=== PATIENT | female | born 1960 | race African-American/Black ===

== ENCOUNTER 2019-06-01 13:09 | Inpatient (IN) | payer OTHER ==
[2019-06-01 15:12] VITALS: BMI 20.6
--- NOTE | 2019-06-01 15:45 | HP ---
COWS - Scale Resting Pulse: 0= [place] 80 or Below Sweatin= Chills/Flushing Restless Observation: 1= Difficult to Sit Still Pupil Size: 1= Pupils >than Normal Bone or Joint Aches: 2= Severe Diffuse Aches Runny Nose/ Eye Tearin= Runny Nose/Eyes GI Upset > 30mins: 2= Nausea/Diarrhea Tremor Observation: 2= Slight Tremor Visible Yawning Observation: 1= 1-2x During Session Anxiety or Irritability: 2=Irritable/Anxious Goose Flesh Skin: 0=Smooth Skin COWS Score: 14 CIWA Score - Admission Criteria OASAS Guidelines: Admission for Medically Managed Detox: Requires at least one of the followin. CIWA greater than 12 2. Seizures within the past 24 hours 3. Delirium tremens within the past 24 hours 4. Hallucinations within the past 24 hours 5. Acute intervention needed for co occurring medical disorder 6. Acute intervention needed for co occurring psychiatric disorder 7. Severe withdrawal that cannot be handled at a lower level of care (continued vomiting, continued diarrhea, abnormal vital signs) requiring intravenous medication and/or fluids 8. Admission ROS [facility] - HPI Chief Complaint: need help to stop using heroin,fentonyl,cocaine Allergies/Adverse Reactions: Allergies Allergy/AdvReac Type Severity Reaction Status Date / Time ampicillin Allergy Intermediate Hives Verified 06/01/19 15:06 History of Present Illness: this 59 years ol female with heroin,fentonyl and cocaine dependence seeking detox,withdrawal symptom, last detox 01/23 [facility] hypertension non compliance, denied seizure,denied syncope weight loss history of schizophrenia non compliance right kne replacement in 09/08/18 left knee surgery in 2003 history of total hysterectomy in 1991 for fibroid uterus longest sobriety 5 years from 2007 to 2012 plan for rehab after detox Exam Limitations: No Limitations - Ebola screening Have you traveled outside of the country in the last 21 days: No Have you had contact with anyone from an Ebola affected area: No - Review of Systems Constitutional: Chills, Loss of Appetite, Night Sweats, Changes in sleep, Weakness, Unexplained wgt Loss EENT: reports: Tearing, Nose Congestion Respiratory: reports: No Symptoms reported Cardiac: reports: No Symptoms Reported GI: reports: Diarrhea, Nausea, Poor Appetite, Abdominal cramping : reports: No Symptoms Reported Musculoskeletal: reports: Back Pain, Joint Pain, Muscle Pain, Other (s/p right knee replacement left knee surgery) Integumentary: reports: Dryness Neuro: reports: Headache, Tremors Endocrine: reports: No Symptoms Reported Hematology: reports: No Symptoms Reported Psychiatric: reports: No Sypmtoms Reported, Judgement Intact, Mood/Affect Appropiate, Orientated x3, other (schizophrenia) Other Systems: Reviewed and Negative Patient History - Patient Medical History Hx Anemia: No Hx Asthma: No Hx Chronic Obstructive Pulmonary Disease (COPD): No Hx Cancer: No Hx Cardiac Disorders: No Hx Congestive Heart Failure: No Hx Hypertension: Yes (nn compliance) Hx Hypercholesterolemia: No Hx Pacemaker: No HX Cerebrovascular Accident: No Hx Seizures: No Hx Dementia: No Hx Diabetes: No Hx Gastrointestinal Disorders: No Hx Liver Disease: No Hx Genitourinary Disorders: No Hx Sexually Transmitted Disorders: No Hx Renal Disease (ESRD): No Hx Thyroid Disease: No Hx Human Immunodeficiency Virus (HIV): Yes (19 negative) Hx Hepatitis C: No Hx Depression: No Hx Suicide Attempt: No Hx Bipolar Disorder: No Hx Schizophrenia: Yes (non compliance) Other Medical History: no suicidal,no homicidal - Patient Surgical History Past Surgical History: Yes Hx Orthopedic Surgery: Yes (right knee replacement in 09/08/18,left knee surgery in 2003) - PPD History Previous Implant?: Yes Documented Results: Negative w/o proof Implanted On Prior R Admission?: No PPD to be Administered?: No - Reproductive History Patient is a Female of Child Bearing Age (11 -55 yrs old): No Patient : No - Smoking Cessation Smoking history: Current every day smoker Have you smoked in the past 12 months: Yes Aproximately how many cigarettes per day: 10 Cigars Per Day: 0 Hx Chewing Tobacco Use: No Initiated information on smoking cessation: Yes 'Breaking Loose' booklet given: 06/01/19 - Substance & Tx. History Hx Alcohol Use: No Hx Substance Use: Yes Substance Use Type: Cocaine, Heroin - Substances abused Heroin Substance route: Inhalation Frequency: Daily Amount used: 1 bundle Age of first use: 27 Date of last use: 05/31/19 Other Other (specify): fentanyl Substance route: Inhalation Frequency: 1-3 times last 30 days Amount used: 1 bundle Age of first use: 59 Date of last use: 05/31/19 Cocaine Substance route: Smoking Frequency: 3-6 times per week Amount used: 20$ Age of first use: 46 Date of last use: 05/31/19 Family Disease History - Family Disease History Family History: Denies Admission Physical Exam [facility] - Vital Signs Vital Signs: Vital Signs - 24 hr 06/01/19 15:05 Temperature 97.9 F Pulse Rate 69 Respiratory 18 Rate Blood Pressure 139/85 - Physical General Appearance: Yes: Moderate Distress, Tremorous, Irritable, Sweating, Anxious HEENTM: Yes: Normal ENT Inspection, BINDU, Pharynx Normal Respiratory: Yes: Lungs Clear, Normal Breath Sounds, No Respiratory Distress Neck: Yes: Within Normal Limits, Supple, Trachea in good position Breast: Yes: Breast Exam Deferred Cardiology: Yes: Within Normal Limits, Regular Rhythm, Regular Rate, S1, S2 Abdominal: Yes: Within Normal Limits, Normal Bowel Sounds, Non Tender, Flat, Soft, Surgical Scar Genitourinary: Yes: Within Normal Limits Back: Yes: Muscle Spasm Musculoskeletal: Yes: Back pain, Joint Stiffness, Muscle Pain Extremities: Yes: Tremors Neurological: Yes: 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 II-XII NML intact, Fully Oriented, Alert, Motor Strength 5/5 Integumentary: Yes: Dry Lymphatic: Yes: Within Normal Limits - Diagnostic (1) Opioid dependence with withdrawal Current Visit: Yes Status: Acute (2) Cocaine dependence Current Visit: Yes Status: Chronic (3) Weight loss Current Visit: Yes Status: Acute (4) Nicotine dependence Current Visit: Yes Status: Chronic (5) Dehydration Current Visit: Yes Status: Acute (6) Schizophrenia Current Visit: Yes Status: Chronic (7) History of hysterectomy Current Visit: Yes Status: Acute (8) History of right knee joint replacement Current Visit: Yes Status: Acute (9) H/O left knee surgery Current Visit: Yes Status: Acute (10) Arthritis Current Visit: Yes Status: Acute Cleared for Admission [facility] - Detox or Rehab [facility] Level of Care: Medically Managed Detox Regimen/Protocol: Methadone Inpatient Rehab Admission - Rehab Decision to Admit Inpatient rehab admission?: No
[2019-06-01] MEDS ORDERED: MENTHOL/PHENOL 1 EACH UD MM PRN (15:53)
[2019-06-01] MEDS ORDERED: IBUPROFEN 400 MG TABLET (FP) PO PRN (15:53)
[2019-06-01] MEDS ORDERED: MAGNESIUM HYDROX 2400MG/30ML ORAL SUSPENSION 30 ML CUP PO PRN (15:53)
[2019-06-01] MEDS ORDERED: NICOTINE POLACRILEX 2 MG GUM BUC PRN (15:53)
[2019-06-01] MEDS ORDERED: BISMUTH SUBSALICYLATE 524 MG/30 ML UD PO PRN (15:53)
[2019-06-01] MEDS ORDERED: ACETAMINOPHEN 325 MG TABLET (FP) PO PRN ×2 (15:53)
[2019-06-01] MEDS ORDERED: MAGNESIUM CITRATE 300 ML BOTTLE PO PRN (15:53)
[2019-06-01] MEDS ORDERED: METHADONE HCL 10 MG TABLET (FOR DETOX USE ONLY) PO ONE (16:45)
[2019-06-01] MEDS: NICOTINE 21 MG/24 HOURS TOPICAL PATCH TD SCH (17:53)
[2019-06-01] MEDS: hydrOXYzine PAMOATE 25 MG CAPSULE (FP) PO PRN (20:37)
[2019-06-01] MEDS: THIAMINE HCL 100 MG TABLET (FP) PO SCH (22:41)
[2019-06-01] MEDS: MELATONIN 5 MG TABLETS PO PRN (22:41)
[2019-06-02] MEDS ORDERED: METHADONE HCL 10 MG TABLET (FOR DETOX USE ONLY) ONE (09:29)
[2019-06-02] MEDS ORDERED: METHADONE HCL 5 MG TABLET (FOR DETOX USE ONLY) ONE (09:30)
[2019-06-02] MEDS: PRENATAL VITAMINS W/ FOLIC ACID TABLET (FP) PO SCH (09:54)
[2019-06-02] MEDS: NICOTINE 21 MG/24 HOURS TOPICAL PATCH TD SCH (09:56)
[2019-06-02] MEDS ORDERED: METHADONE (DETOX) 20 MG, METHADONE (DETOX) 5 MG PO ONE (10:00)
[2019-06-02] MEDS: hydrOXYzine PAMOATE 25 MG CAPSULE (FP) PO PRN ×3 (11:14→22:41)
[2019-06-02] MEDS: cloNIDine HCL 0.1 MG TABLET PO PRN ×3 (11:48→20:56)
[2019-06-02 11:55] LABS: HEMATOCRIT 38.8 % (32.4-45.2); HEMOGLOBIN 13.1 GM/dL (10.7-15.3); MCH 31.2 pg (25.7-33.7); MCHC 33.6 g/dl (32.0-36.0); MEAN CELL VOLUME 92.8 fl (80-96); MEAN PLT VOLUME 8.8 fl (7.5-11.1); PLATELET COUNT 304 K/MM3 (134-434); RBC 4.18 M/mm3 (3.60-5.2)
[2019-06-02 12:04] LABS: ALBUMIN 3.8 g/dl (3.4-5.0); BILIRUBIN,TOTAL 0.5 mg/dL (0.2-1); BLOOD UREA NITROGEN 8.3 mg/dL (7-18); CALCIUM 10.3 mg/dL (8.5-10.1); CREATININE 0.7 mg/dL (0.55-1.3)
--- NOTE | 2019-06-02 12:04 | CONSULT ---
[facility] Psychiatric Consult - Data Date of interview: 06/02/19 Admission source: [facility] Identifying data: First admission to [facility] for this 59 y/o AA female self- referred for detoxification (heroin, cocaine, fentanyl). Interviewed at [address] [place] [address]. Patient is single, a mother of one, domiciled (resides with relatives in [place]), unemployed, disabled and supported on [facility] benefits. Substance Abuse History: Discussed in this interview. Substance abuse profile is confirmed by patient, as detailed in current [facility] report : Smoking history: Current every day smoker. Have you smoked in the past 12 months: Yes. Aproximately how many cigarettes per day: 10. Cigars Per Day: 0. Hx Chewing Tobacco Use: No. Initiated information on smoking cessation: Yes. 'Breaking Loose' booklet given: 06/01/19. - Substance & Tx. History. Hx Alcohol Use: No. Hx Substance Use: Yes. Substance Use Type: Cocaine, Heroin. - Substances abused. Heroin. Substance route: Inhalation. Frequency: Daily. Amount used: 1 bundle. Age of first use: 27. Date of last use: 05/31/19. Other. Other (specify): fentanyl. Substance route: Inhalation. Frequency: 1-3 times last 30 days. Amount used: 1 bundle. Age of first use: 59. Date of last use: 05/31/19. Cocaine. Substance route: Smoking. Frequency: 3-6 times per week. Amount used: 20$. Age of first use: 46. Date of last use: 05/31/19 Medical History: Medical history is remarkable for hypertension, GERD, hyperthyroidism, antecedent of orthosurgery (total right knee replacement + partial left knee replacement) and a history of hysterectomy (fibroids). Psychiatric History: Patient presents as a hostile + irritable historian. She endorses an extensive history of mental illness (onset at age 24) that warranted multiple psychiatric hospitalizations ([facility] and [facility]). Reportably diagnosed with Schizophrenia. Ms Szymanski indicates that she no longer has a psychiatrist for outpatient care. She cannot remember the names of her medications. Review of external pharmacy activity shows refills for suboxone + paliperidone (oral) at [facility] and [facility] (03/09/19 + 05/02/19 respectively). Patient reports non-adherence with psychotropic medications for more than two weeks. " I don't take medications when I use drugs." No contact with psychiatric OPD care providers. Patient denies history of suicide attempts. Physical/Sexual Abuse/Trauma History: Not discussed. Patient declines to revisit this domain. Additional Comment: No toxicology available for review. Mental Status Exam - Mental Status Exam Alert and Oriented to: Time, Place, Person Cognitive Function: Good Patient Appearance: Well Groomed (thin frame; tattoos on upper extremities) Mood: Angry, Hostile, Nervous, Irritable Affect: Mood Congruent Patient Behavior: Inappropriate, Fatigued, Guarded, Impulsive Speech Pattern: Clear Voice Loudness: Normal Thought Process: Goal Oriented Hallucinations: Denies Suicidal Ideation: Denies Homicidal Ideation: Denies Insight/Judgement: Poor Sleep: Poorly, Difficulty falling asleep Appetite: Poor, Weight loss Gait/Station: Normal Psychiatric Findings - Problem List (Anita 1, 2,3) (1) Schizophrenia Current Visit: Yes Status: Chronic (2) Opioid dependence with withdrawal Current Visit: Yes Status: Acute (3) Cocaine dependence Current Visit: Yes Status: Chronic (4) Nicotine dependence Current Visit: Yes Status: Chronic (5) Substance induced mood disorder Current Visit: Yes Status: Acute (6) Insomnia Current Visit: Yes Status: Chronic (7) Non-compliance Current Visit: Yes Status: Chronic - Initial Treatment Plan Initial Treatment Plan: Psychoeducation. Sleep hygiene. Detoxification. Clarification of medications. Support. NA meetings. Observation.
--- NOTE | 2019-06-02 12:16 | PN ---
BHS COWS - Scale Resting Pulse: 0= [place] 80 or Below Sweatin= Chills/Flushing Restless Observation: 0= Sits Still Pupil Size: 1= Pupils >than Normal Bone or Joint Aches: 1= Mild Discomfort Runny Nose/ Eye Tearin= Nasal Congestion GI Upset > 30mins: 1= Stomach Cramp Tremor Observation of Outstretched Hands: 2= Slight Tremor Visible Yawning Observation: 1= 1-2x During Session Anxiety or Irritability: 2=Irritable/Anxious Goose Flesh Skin: 0=Smooth Skin COWS Score: 10 S Progress Note (SOAP) Subjective: 59 years old female admitted on 06/01/19 for opiate withdrawal sx management doing well with methadone detox regimen resting on bed feeling tired prefers to stay in bed today suboxone 8-2mg po tid fill every two weeks last filled 05/16/19 unable to evaluate urine tox upon admission reorder urine tox Objective: 06/02/19 12:17 Vital Signs Temperature 98.0 F 06/02/19 09:22 Pulse Rate 70 06/02/19 09:22 Respiratory Rate 18 06/02/19 09:22 Blood Pressure 114/70 06/02/19 09:22 O2 Sat by Pulse Oximetry (%) Laboratory Last Values WBC 7.0 K/mm3 (4.0-10.0) 06/02/19 07:30 RBC 4.18 M/mm3 (3.60-5.2) 06/02/19 07:30 Hgb 13.1 GM/dL (10.7-15.3) 06/02/19 07:30 Hct 38.8 % (32.4-45.2) 06/02/19 07:30 MCV 92.8 fl (80-96) 06/02/19 07:30 MCH 31.2 pg (25.7-33.7) 06/02/19 07:30 MCHC 33.6 g/dl (32.0-36.0) 06/02/19 07:30 RDW 13.0 % (11.6-15.6) 06/02/19 07:30 Plt Count 304 K/MM3 (134-434) 06/02/19 07:30 MPV 8.8 fl (7.5-11.1) 06/02/19 07:30 Sodium 140 mmol/L (136-145) 06/02/19 07:30 Potassium 5.0 mmol/L (3.5-5.1) 06/02/19 07:30 Chloride 107 mmol/L (98-107) 06/02/19 07:30 Carbon Dioxide 28 mmol/L (21-32) 06/02/19 07:30 Anion Gap 5 MMOL/L (8-16) L 06/02/19 07:30 BUN 8.3 mg/dL (7-18) 06/02/19 07:30 Creatinine 0.7 mg/dL (0.55-1.3) 06/02/19 07:30 Est GFR (CKD-EPI)AfAm 110.69 06/02/19 07:30 Est GFR (CKD-EPI)NonAf 95.50 06/02/19 07:30 Random Glucose 80 mg/dL (74-106) 06/02/19 07:30 Calcium 10.3 mg/dL (8.5-10.1) H 06/02/19 07:30 Total Bilirubin 0.5 mg/dL (0.2-1) 06/02/19 07:30 AST 13 U/L (15-37) L 06/02/19 07:30 ALT 18 U/L (13-61) 06/02/19 07:30 Alkaline Phosphatase 62 U/L (45-117) 06/02/19 07:30 Total Protein 7.0 g/dl (6.4-8.2) 06/02/19 07:30 Albumin 3.8 g/dl (3.4-5.0) 06/02/19 07:30 lab noted Assessment: 06/02/19 12:17 opiate withdrawal sx alert low voice limited conversation with staff Plan: continue methadone detox
[2019-06-02 12:42] LABS: SICKLE CELL SCREEN NEGATIVE (NEGATIVE)
[2019-06-02] MEDS: METHOCARBAMOL 500 MG TABLET PO PRN (22:41)
[2019-06-02] MEDS: THIAMINE HCL 100 MG TABLET (FP) PO SCH (22:41)
[2019-06-02 23:15] LABS: EPI CELLS 3.9 /HPF (0-5/HPF); HYALINE CASTS 14 /lpf (0-8); PH,URINE 6.5 (5.0-8.0); URINE APPEARANCE CLOUDY; URINE BACTERIA 33.7 /hpf (NEGATIVE); URINE BILIRUBIN NEGATIVE (NEGATIVE); URINE COLOR YELLOW; URINE GLUCOSE (UA) NEGATIVE (NEGATIVE); URINE KETONE NEGATIVE (NEGATIVE); URINE LEUK ESTERASE 2+ (NEGATIVE); URINE NITRITE NEGATIVE (NEGATIVE); URINE PROTEIN NEGATIVE (NEGATIVE); URINE RBC 3 /hpf (0-4); URINE UROBILINOGEN 0.2 mg/dL (0.2-1.0); URINE WBC 28 /hpf (0-5)
[2019-06-02 23:34] LABS: OPIATES, URI NEGATIVE ng/ml (CUTOFF=300); PHENCYCLIDINE,URINE NEGATIVE ng/ml (CUTOFF=25); URINE AMPHETAMINES NEGATIVE ng/ml (CUTOFF=500); URINE BARBITURATES NEGATIVE ng/ml (CUTOFF=200); URINE BENZODIAZEPINES NEGATIVE ng/ml (CUTOFF=200)
[2019-06-02 23:48] LABS: COCAINE, UR POSITIVE ng/ml (CUTOFF=300)
[2019-06-02 23:49] LABS: METHADONE, UR POSITIVE ng/ml (CUTOFF=300)
[2019-06-03] MEDS ORDERED: METHADONE HCL 10 MG TABLET (FOR DETOX USE ONLY) PO ONE (10:00)
[2019-06-03] MEDS: NICOTINE 21 MG/24 HOURS TOPICAL PATCH TD SCH (10:15)
[2019-06-03] MEDS: PRENATAL VITAMINS W/ FOLIC ACID TABLET (FP) PO SCH (10:16)
--- NOTE | 2019-06-03 10:57 | EKG ---
Test Reason : Blood Pressure : / mmHG Vent. Rate : 073 BPM Atrial Rate : 073 BPM P-R Int : 136 ms QRS Dur : 086 ms QT Int : 400 ms P-R-T Axes : 068 045 047 degrees QTc Int : 440 ms NORMAL SINUS RHYTHM WITH SINUS ARRHYTHMIA POSSIBLE LEFT ATRIAL ENLARGEMENT BORDERLINE ECG NO PREVIOUS ECGS AVAILABLE Confirmed by JULIA BROOKS MD ([id number]) on 06/03/2019 10:56:34 AM Referred By: PATRICIA Rose Confirmed By:JULIA BROOKS MD
--- NOTE | 2019-06-03 11:36 | PN ---
BHS COWS - Scale Resting Pulse: 0= [place] 80 or Below Sweatin= Chills/Flushing Restless Observation: 0= Sits Still Pupil Size: 1= Pupils >than Normal Bone or Joint Aches: 1= Mild Discomfort Runny Nose/ Eye Tearin= Nasal Congestion GI Upset > 30mins: 1= Stomach Cramp Tremor Observation of Outstretched Hands: 1= Tremor [place], Not Seen Yawning Observation: 1= 1-2x During Session Anxiety or Irritability: 1=Feels Anxious/Irritable Goose Flesh Skin: 0=Smooth Skin COWS Score: 8 S Progress Note (SOAP) Subjective: doing well with methadone detox regimen ambulating on hallway social with peers in day room taking suboxone 8-2 mg po tid last filled 2 weeks on 05/16/19 Objective: 06/03/19 11:49 Vital Signs Temperature 97.7 F 06/03/19 09:15 Pulse Rate 72 06/03/19 09:15 Respiratory Rate 18 06/03/19 09:15 Blood Pressure 109/69 06/03/19 09:15 O2 Sat by Pulse Oximetry (%) Laboratory Last Values WBC 7.0 K/mm3 (4.0-10.0) 06/02/19 07:30 RBC 4.18 M/mm3 (3.60-5.2) 06/02/19 07:30 Hgb 13.1 GM/dL (10.7-15.3) 06/02/19 07:30 Hct 38.8 % (32.4-45.2) 06/02/19 07:30 MCV 92.8 fl (80-96) 06/02/19 07:30 MCH 31.2 pg (25.7-33.7) 06/02/19 07:30 MCHC 33.6 g/dl (32.0-36.0) 06/02/19 07:30 RDW 13.0 % (11.6-15.6) 06/02/19 07:30 Plt Count 304 K/MM3 (134-434) 06/02/19 07:30 MPV 8.8 fl (7.5-11.1) 06/02/19 07:30 Sickle Cell Screen Negative (NEGATIVE) 06/02/19 07:30 Sodium 140 mmol/L (136-145) 06/02/19 07:30 Potassium 5.0 mmol/L (3.5-5.1) 06/02/19 07:30 Chloride 107 mmol/L (98-107) 06/02/19 07:30 Carbon Dioxide 28 mmol/L (21-32) 06/02/19 07:30 Anion Gap 5 MMOL/L (8-16) L 06/02/19 07:30 BUN 8.3 mg/dL (7-18) 06/02/19 07:30 Creatinine 0.7 mg/dL (0.55-1.3) 06/02/19 07:30 Est GFR (CKD-EPI)AfAm 110.69 06/02/19 07:30 Est GFR (CKD-EPI)NonAf 95.50 06/02/19 07:30 Random Glucose 80 mg/dL (74-106) 06/02/19 07:30 Calcium 10.3 mg/dL (8.5-10.1) H 06/02/19 07:30 Total Bilirubin 0.5 mg/dL (0.2-1) 06/02/19 07:30 AST 13 U/L (15-37) L 06/02/19 07:30 ALT 18 U/L (13-61) 06/02/19 07:30 Alkaline Phosphatase 62 U/L (45-117) 06/02/19 07:30 Total Protein 7.0 g/dl (6.4-8.2) 06/02/19 07:30 Albumin 3.8 g/dl (3.4-5.0) 06/02/19 07:30 Urine Color Yellow 06/02/19 17:15 Urine Appearance Cloudy 06/02/19 17:15 Urine pH 6.5 (5.0-8.0) 06/02/19 17:15 Ur Specific [place] 1.016 (1.010-1.035) 06/02/19 17:15 Urine Protein Negative (NEGATIVE) 06/02/19 17:15 Urine Glucose (UA) Negative (NEGATIVE) 06/02/19 17:15 Urine Ketones Negative (NEGATIVE) 06/02/19 17:15 Urine Blood Negative (NEGATIVE) 06/02/19 17:15 Urine Nitrite Negative (NEGATIVE) 06/02/19 17:15 Urine Bilirubin Negative (NEGATIVE) 06/02/19 17:15 Urine Urobilinogen 0.2 mg/dL (0.2-1.0) 06/02/19 17:15 Ur Leukocyte Esterase 2+ (NEGATIVE) H 06/02/19 17:15 Urine WBC (Auto) 28 /hpf (0-5) 06/02/19 17:15 Urine RBC (Auto) 3 /hpf (0-4) 06/02/19 17:15 Urine Casts (Auto) 14 /lpf (0-8) 06/02/19 17:15 U Epithel Cells (Auto) 3.9 /HPF (0-5/HPF) 06/02/19 17:15 Urine Crystals (Auto) 10-15 /hpf 06/02/19 17:15 Urine Bacteria (Auto) 33.7 /hpf (NEGATIVE) 06/02/19 17:15 Opiates Screen Negative ng/ml (PDERZD=612) 06/02/19 17:15 Methadone Screen Positive ng/ml (UKNIFX=797) A* 06/02/19 17:15 Barbiturate Screen Negative ng/ml (QMVKAJ=421) 06/02/19 17:15 Phencyclidine Screen Negative ng/ml (CUTOFF=25) 06/02/19 17:15 Ur Amphetamines Screen Negative ng/ml (KLDNWR=852) 06/02/19 17:15 MDMA (Ecstasy) Screen Negative ng/ml (TQSYFE=310) 06/02/19 17:15 Benzodiazepines Screen Negative ng/ml (NVLLYD=998) 06/02/19 17:15 Cocaine Screen Positive ng/ml (XQCIKQ=847) A* 06/02/19 17:15 U Marijuana (THC) Screen Negative ng/ml (CUTOFF=50) 06/02/19 17:15 RPR Titer Nonreactive (NONREACTIVE) 06/02/19 07:30 lab noted negative suboxone positive methadone uti bactrim ds bid Assessment: 06/03/19 11:50 opite withdrawal sx alert oriented x 3 speech clearly discuss medication assisted treatment program patient agrees returning to suboxone program Plan: continue methadone detox regimen
[2019-06-03] MEDS: cloNIDine HCL 0.1 MG TABLET PO PRN ×2 (12:05→16:11)
[2019-06-03] MEDS: hydrOXYzine PAMOATE 25 MG CAPSULE (FP) PO PRN ×2 (12:06→17:38)
[2019-06-03] MEDS: METHOCARBAMOL 500 MG TABLET PO PRN ×2 (12:28→17:38)
[2019-06-03] MEDS: SULFAMETHOXAZOLE/TRIMETHOPRIM 800MG/160MG D.S. TABLET PO SCH ×2 (12:39→20:59)
--- NOTE | 2019-06-03 15:00 | PN ---
PEG Progress Note Note: Psychiatry Attending's note : Patient approached hand sign writer with complaint of insomnia. She requests seroquel. Reports past dose of 200 mg/hs. Side effects/benefits revisited with the patient. Seroquel 100 mg po hs. Ordered. Ms Szymanski agrees.
--- NOTE | 2019-06-03 20:52 | PN ---
BHS Progress Note Note: Psychiatry Attending's note : Noted hypotension. Seroquel is discontinued.
[2019-06-03] MEDS: THIAMINE HCL 100 MG TABLET (FP) PO SCH (20:59)
[2019-06-03] MEDS: MELATONIN 5 MG TABLETS PO PRN (21:01)
[2019-06-03] MEDS ORDERED: QUEtiapine FUMARATE 100 MG TABLET (FP) PO SCH (22:00)
[2019-06-04] MEDS: MAG HYDROX/AL HYDROX/SIMETH 30 ML UNIT-DOSE CUP PO PRN ×2 (01:43→11:41)
[2019-06-04] MEDS: MELATONIN 5 MG TABLETS PO PRN (01:43)
[2019-06-04] MEDS ORDERED: METHADONE HCL 10 MG TABLET (FOR DETOX USE ONLY) ONE (09:16)
[2019-06-04] MEDS ORDERED: METHADONE HCL 5 MG TABLET (FOR DETOX USE ONLY) ONE (09:16)
[2019-06-04] MEDS ORDERED: METHADONE (DETOX) 10 MG, METHADONE (DETOX) 5 MG PO ONE (10:00)
[2019-06-04] MEDS: SULFAMETHOXAZOLE/TRIMETHOPRIM 800MG/160MG D.S. TABLET PO SCH ×2 (10:08→23:18)
[2019-06-04] MEDS: PRENATAL VITAMINS W/ FOLIC ACID TABLET (FP) PO SCH (10:08)
[2019-06-04] MEDS: NICOTINE 21 MG/24 HOURS TOPICAL PATCH TD SCH (10:09)
[2019-06-04] MEDS: METHOCARBAMOL 500 MG TABLET PO PRN ×2 (10:10→16:16)
[2019-06-04] MEDS ORDERED: ONDANSETRON *ODT* 4 MG TABLET SL ONE ×2 (10:52→18:15)
[2019-06-04] MEDS ORDERED: TRIMETHOBENZAMIDE HCL 200MG/2ML INJ IM ONE (14:06)
--- NOTE | 2019-06-04 14:06 | PN ---
BHS COWS - Scale Resting Pulse: 0= [place] 80 or Below Sweatin= Chills/Flushing Restless Observation: 1= Difficult to Sit Still Pupil Size: 1= Pupils >than Normal Bone or Joint Aches: 1= Mild Discomfort Runny Nose/ Eye Tearin= Nasal Congestion GI Upset > 30mins: 1= Stomach Cramp Tremor Observation of Outstretched Hands: 1= Tremor [place], Not Seen Yawning Observation: 1= 1-2x During Session Anxiety or Irritability: 2=Irritable/Anxious Goose Flesh Skin: 0=Smooth Skin COWS Score: 10 BHS Progress Note (SOAP) Subjective: alert,irritable,anxious,interrupted sleep,pain in epigastrium ,nausea Objective: 06/04/19 14:04 Vital Signs Temperature 96.7 F L 06/04/19 13:17 Pulse Rate 70 06/04/19 13:17 Respiratory Rate 18 06/04/19 13:17 Blood Pressure 145/89 06/04/19 13:17 O2 Sat by Pulse Oximetry (%) Assessment: 06/04/19 14:04 withdrawal symptom Plan: continue methadone regimen,zofran 4 mg sl prn q 6 hrs,tigan 200 mgs im now, close monitoring
--- NOTE | 2019-06-04 17:24 | PN ---
S Progress Note (SOAP) Subjective: Consulted for abdominal pain. Patient is a 59 yo f with a PMHx of HTN GERD, hyperthyroidism, heroin and cocaine dependence complaining of 10/10, constant, burning epigastric abdominal pain that started last night. She said it radiates around to her back. no alleviating or aggravating factors. She said she gets this pain all the time, on and off. When asked, she says she has a history of ulcer and 1 episode of pancreatitis last year. She also says she has GERD. She's had a cholecystectomy in the past. She complains of nausea and says she's been spitting up everything she's been swallowing. She also reports having chills. Patient denies nsaid use,chest pain, sob, cough, diarrhea, dizziness, cough, runny nose, bloody stools. Objective: 06/04/19 17:29 Patient In No acute distress. a/o x 3 +BS, Nontender to palpation, non distended. no guarding, or rebound RRR no edema Plan: #Epigastric pain -CBC -CMP -EKG -Protonix for possible GERD/gastritis -Zofran 1 x. QTc ok -Lipase. Patient reported history of pancreatitis. -monitor vital signs -D/C Ibuprofen order (although did not receive here) -if pain persists, will likely need to be transferred to [facility] for further evaluation. Thank you for your consult.
[2019-06-04] MEDS ORDERED: PROCHLORPERAZINE MALEATE 5 MG TABLET PO ONE (17:36)
--- NOTE | 2019-06-04 17:45 | PN ---
Teaching Attending Note Name of Resident: Vida Maria ATTENDING PHYSICIAN STATEMENT I saw and evaluated the patient. I reviewed the resident's note and discussed the case with the resident. I agree with the resident's findings and plan as documented. SUBJECTIVE: 59 yo here for OUD treatment with heroin detox. Now with c/o mid- epigastric pain. h/o similar pain in the past- with no relief from medications. Spontaneous relief. Pt with h/o GERD, pancreatitis in the past OBJECTIVE: no pain to palpation, no rebound Vital Signs - 24 hr 06/03/19 06/04/19 06/04/19 21:10 00:30 03:30 Temperature 98.2 F Pulse Rate 72 Respiratory 18 18 18 Rate Blood Pressure 94/64 06/04/19 06/04/19 06/04/19 06:13 09:31 13:17 Temperature 98.9 F 97.8 F 96.7 F L Pulse Rate 61 79 70 Respiratory 18 16 18 Rate Blood Pressure 107/67 105/69 145/89 06/04/19 17:26 Temperature 98.2 F Pulse Rate 69 Respiratory 16 Rate Blood Pressure 138/83 ASSESSMENT AND PLAN: to check labs- CMP EKG negative prn protonix, [place], pepto-bismol follow
[2019-06-04 18:11] VITALS: BP 152/80; PULSE 60; TEMP 98.5
[2019-06-04] MEDS ORDERED: ONDANSETRON 4 MG TABLET PO ONE (18:15)
[2019-06-04] MEDS ORDERED: PANTOPRAZOLE 40 MG TABLET (FP) PO ONE (18:15)
[2019-06-04] MEDS: THIAMINE HCL 100 MG TABLET (FP) PO SCH (23:18)
--- NOTE | 2019-06-05 04:10 | HP ---
CHIEF COMPLAINT: Epigastric pain associated with NBNB nausea and vomiting for the past 2 days. PCP: None HISTORY OF PRESENT ILLNESS: The patient is a 59 year old female with past medical history significant for HTN, GERD, schizophrenia, and opioid abuse. She was admitted to [facility] on Saturday (06/03) for heroin detoxification and remained there until she presented to the ER with complaints of epigastric pain associated with NBNB nausea and vomiting for the past 2 days. The pain began 2 days ago, gradual in onset and worsened earlier today. She describes the pain as constant, 10/10 in intensity, non-radiating, aggravated by eating or drinking, and no alleviating factors other than the Famotidine she received in the ER. She has had 3 episodes of vomiting in the past 2 days, with 2 episodes today, one of which was in the ER. She describes the vomitus as clear at first, and green most recently, containing visible food particles, but no blood or bile. While at [facility], she was noticed to have 2+ Leukocyte Esterase on her UA, and was started on Bactrim PO. She does not complain of any dysuria, urinary frequency, hematuria, or pyuria. She is on day 3 of her Bactrim course. She complains of fevers, chills, dizziness, SOB, and palpitations associated with the pain and vomiting. Her last bowel movement (BM) was 2 days ago, and she states that it was hard, non bloody, and associated with pain. She normally has soft, daily bowel movements. There are no associated complaints of throat pain, rhinorrhea,fainting, chest pain,cough, dysuria, or hematuria. ER course was notable for: (1) Famotidine/ Reglan/ Famotidine (2) N/S (3) Mg 2.9 (elevated) Recent Travel: None PAST MEDICAL HISTORY: HTN GERD Schizophrenia Opioid abuse PAST SURGICAL HISTORY: Hysterectomy 1991 Left knee replacement 2003 Cholecystectomy 2013 Right knee replacement 2018 Social History: Smokin/2 pack a day for the past 40 years Alcohol: none Drugs: occasional cocaine use (last use a few days ago, 1-2 vials used) Family History: Mother: HTN, DM, Breast CA at the age of 80 Brother: DM Allergies ampicillin Allergy (Intermediate, Verified 06/01/19 15:06) Hives HOME MEDICATIONS: Home Medications Medication Instructions Recorded Acetaminophen [Tylenol] 650 mg PO Q6H PRN 06/05/19 Bismuth Subsalicylate 524 mg PO Q1H PRN 06/05/19 [Pepto-Bismol -] Mag Hydrox/Al Hydrox/Simeth 30 ml PO Q6H PRN 06/05/19 [Mylanta *Suspension*] Magnesium Citrate [Citroma -] 300 ml PO Q48H PRN 06/05/19 Magnesium Hydrox 2400MG/30Ml [Milk 30 ml PO DAILY PRN 06/05/19 of Magnesia -] Melatonin 5 mg PO HS PRN 06/05/19 Menthol/Phenol [Cepastat Lozenge -] 1 each MM Q4H PRN 06/05/19 Methadone [Dolophine -] 5 mg PO ONCE 06/05/19 Methadone [Dolophine -] 10 mg PO ONCE 06/05/19 Methocarbamol [Robaxin -] 500 mg PO Q6H PRN 06/05/19 Nicotine Patch [Nicoderm Patch -] 1 patch TD DAILY 06/05/19 Nicotine Polacrilex [Nicorette] 2 mg BC Q2H PRN 06/05/19 Pnv No.121/Iron/Folic Acid 1 each PO DAILY 06/05/19 [ Multivitamin Tablet] Sulfamethoxazole/Trimethoprim 1 tab PO BID 06/05/19 [Bactrim Ds -] Thiamine Mononitrate [Vitamin B-1] 100 mg PO HS 06/05/19 hydrOXYzine PAMOATE [Vistaril -] 25 mg PO Q6H PRN 06/05/19 REVIEW OF SYSTEMS CONSTITUTIONAL: fever, chills Absent: diaphoresis, generalized weakness, malaise, loss of appetite, weight change HEENT: Absent: rhinorrhea, nasal congestion, throat pain, throat swelling, difficulty swallowing, mouth swelling, ear pain, eye pain, visual changes CARDIOVASCULAR: palpitations, Absent: chest pain, syncope, irregular heart rate, lightheadedness, peripheral edema RESPIRATORY: Absent: cough, shortness of breath, dyspnea with exertion, orthopnea, wheezing, stridor, hemoptysis GASTROINTESTINAL: abdominal pain, nausea, vomiting Absent: abdominal distension, diarrhea, constipation, melena, hematochezia GENITOURINARY: Absent: dysuria, frequency, urgency, hesitancy, hematuria, flank pain, genital pain MUSCULOSKELETAL: Absent: myalgia, arthralgia, joint swelling, back pain, neck pain SKIN: Absent: rash, itching, pallor HEMATOLOGIC/IMMUNOLOGIC: Absent: easy bleeding, easy bruising, lymphadenopathy, frequent infections ENDOCRINE: Absent: unexplained weight gain, unexplained weight loss, heat intolerance, cold intolerance NEUROLOGIC: Absent: headache, focal weakness or paresthesias, dizziness, unsteady gait, seizure, mental status changes, bladder or bowel incontinence PSYCHIATRIC: Absent: anxiety, depression, suicidal or homicidal ideation, hallucinations. PHYSICAL EXAMINATION Vital Signs - 24 hr 06/04/19 06/04/19 06/04/19 06:13 09:31 13:17 Temperature 98.9 F 97.8 F 96.7 F L Pulse Rate 61 79 70 Respiratory 18 16 18 Rate Blood Pressure 107/67 105/69 145/89 06/04/19 06/04/19 06/05/19 17:26 18:10 00:21 Temperature 98.2 F 98.5 F Pulse Rate 69 60 Respiratory 16 16 18 Rate Blood Pressure 138/83 152/80 COW Score: 3 (nausea, vomiting) GENERAL: Awake, alert, and fully oriented, in no acute distress. HEAD: Normal with no signs of trauma. EYES: Pupils equal, round and reactive to light, extraocular movements intact, sclera anicteric, conjunctiva clear. No lid lag. EARS, NOSE, THROAT: Ears normal, nares patent, oropharynx clear without exudates. Moist mucous membranes. NECK: Normal range of motion, supple without lymphadenopathy, JVD, or masses. LUNGS: Breath sounds equal, clear to auscultation bilaterally. No wheezes, and no crackles. No accessory muscle use. HEART: Regular rate and rhythm, normal S1 and S2 without murmur, rub or gallop. ABDOMEN: Soft, nontender, not distended, normoactive bowel sounds, no guarding, no rebound, no masses. No hepatomegaly or splenomegaly. MUSCULOSKELETAL: Normal range of motion at all joints. No bony deformities or tenderness. No CVA tenderness. UPPER EXTREMITIES: 2+ pulses, warm, well-perfused. No cyanosis. No clubbing. No peripheral edema. LOWER EXTREMITIES: 2+ pulses, warm, well-perfused. No calf tenderness. No peripheral edema. NEUROLOGICAL: Cranial nerves II-XII intact. Normal speech. Normal gait. PSYCHIATRIC: Cooperative. Good eye contact. Appropriate mood and affect. SKIN: Warm, dry, normal turgor, no rashes or lesions noted, normal capillary refill. ASSESSMENT/PLAN: #Withdrawal symptoms - Continue methdone (2 doses left) - Fluids to hydrate, R/L #Epigastric pain - Protonix 40mg for epigastric pain - US Abdomen to r/o any acute process - Repeat EKG, initial EKG shows sinus bradycardia (49 BPM) #Asymptomatic UTI - Bactrim 5 day course, only 1 dose given on , dose not given on the - WBC wnl, UA shows no sign of infection #Constipation - Started on colace #Hypermagnesia - Started on Colace, was previously on Milk of Magnesia (contains Mg) - Avoid meds containing Mg #Hx of HTN - Monitor BP - Currently only borderline hypertensive at times, should continue to monitor and encourage establishment of regular PCP visits in the future #FEN - R/L - Monitor Mg - Sodium controlled diet #DVT PE - Lovenox 40mg ATTENDING PHYSICIAN STATEMENT I saw and evaluated the patient. I reviewed the resident's note and discussed the case with the resident. I agree with the resident's findings and plan as documented. SUBJECTIVE: OBJECTIVE: ASSESSMENT AND PLAN:
[2019-06-05] MEDS ORDERED: PANTOPRAZOLE 40 MG TABLET (FP) PO ONE (04:53)
[2019-06-05] MEDS ORDERED: METHADONE HCL 10 MG TABLET (FOR DETOX USE ONLY) PO ONE (10:00)
--- NOTE | 2019-06-05 11:54 | EKG ---
Test Reason : Blood Pressure : / mmHG Vent. Rate : 052 BPM Atrial Rate : 052 BPM P-R Int : 134 ms QRS Dur : 084 ms QT Int : 428 ms P-R-T Axes : 072 060 055 degrees QTc Int : 398 ms SINUS BRADYCARDIA OTHERWISE NORMAL ECG WHEN COMPARED WITH ECG OF 01-JUN-2019 16:31, NO SIGNIFICANT CHANGE WAS FOUND Confirmed by CONNIE ARGUETA MD ([id number]) on 06/05/2019 11:53:44 AM Referred By: KATLIN GALICIA Confirmed By:CONNIE ARGUETA MD
[2019-06-06] MEDS ORDERED: METHADONE HCL 5 MG TABLET (FOR DETOX USE ONLY) PO ONE (06:00)
== END 2019-06-04 23:59 | disposition short-term general hospital (02) | DRG 897 ==
LOC: YASAS 13:09 → Y3N 15:55
PROVIDERS: ADMIT Surgery; ATTEND Surgery
PROC: HZ2ZZZZ Detoxification Services for Substance Abuse Treatment (ICD-10-PCS; principal; 2019-06-01)
DX: F11.23 Opioid dependence with withdrawal (principal); F14.20 Cocaine dependence, uncomplicated; F17.210 Nicotine dependence, cigarettes, uncomplicated; F19.24 Other psychoactive substance dependence with psychoactive substance-induced mood disorder; F20.9 Schizophrenia, unspecified; E05.90 Thyrotoxicosis, unspecified without thyrotoxic crisis or storm; E86.0 Dehydration; I10 Essential (primary) hypertension; K21.9 Gastro-esophageal reflux disease without esophagitis; G47.00 Insomnia, unspecified; M12.9 Arthropathy, unspecified; R10.13 Epigastric pain; R11.2 Nausea with vomiting, unspecified; Z96.652 Presence of left artificial knee joint; Z90.710 Acquired absence of both cervix and uterus
CPT/HCPCS: 36415; 80053; 80307; 81003; 85027; 85660; 86480; 86593; 93005; 93010; J0735; Q0162

== ENCOUNTER 2019-06-04 19:09 | Inpatient (IN) | payer OTHER ==
--- NOTE | 2019-06-04 19:24 | PDOC ---
History of Present Illness - General Stated Complaint: ABDOMINAL PAIN Time Seen by Provider: 06/04/19 19:16 History Source: Patient Exam Limitations: No Limitations - History of Present Illness Initial Comments: HPI 59 year old female with PMH HTN (medication noncompliance), schizophrenia ( medication noncompliance), GERD (medication noncompliance), pancreatitis, heroine abuse, fentanyl abuse, cocaine abuse, nicotine dependence BIBA to ED from [facility] for epigastric pain since this AM. Pt reported her pain is constant, burning, non-radiating, no alleviating or aggravating factors. Pt admitted to nausea, vomiting. Pt denied diarrhea, blood in stool, fever, recent travel, chest pain, shortness of breath. Pt reported she has not eaten all day and is unable to hold down water. Abdominal surgical history: cholecystectomy, hysterectomy (2/2 fibroid uterus) ROS General: admitted to sweats, chills. denied fever, generalized weakness. HEENT: denied sore throat, rhinorrhea, ear pain. Cardiovascular: denied chest pain, palpitations, syncope, diaphoresis. Respiratory: denied shortness of breath, cough, sputum production, hemoptysis. Gastrointestinal: admitted to abdominal pain, nausea, vomiting. denied diarrhea , constipation, blood in stool. Genitourinary: denied dysuria, increased urinary frequency, hematuria, urinary incontinence, flank pain. Back: denied back pain. Musculoskeletal: denied joint pain, muscle pain, joint swelling. Neurological: denied headache, dizziness, numbness, tingling, weakness. Integumentary: denied rash, laceration, abrasion. Hematologic/Lymphatic: denied bruising or bleeding. PE Constitutional: Well-nourished, Well-developed, appearing stated age. HEENT: head is normocephalic, atraumatic. EOMI. PERRLA. Neck: supple. Full ROM. Cardiovascular: regular heart rhythm. no murmurs. no pericardial friction rub. Respiratory: clear to auscultation bilaterally. no crackles, rhonchi or wheezing. no stridor. Gastrointestinal: soft, nontender. juarez negative. normal bowel sounds. no rebound, guarding, masses. Extremities: peripheral pulses intact. no lower extremity edema. Neurological: CN 2-12 grossly intact. moves all four extremities. Psych: awake, alert, oriented x3. follows commands. answers questions appropriately. 06/04/19 20:34 Past History - Past Medical History Allergies/Adverse Reactions: Allergies Allergy/AdvReac Type Severity Reaction Status Date / Time ampicillin Allergy Intermediate Hives Verified 06/01/19 15:06 Home Medications: Ambulatory Orders Unobtainable 06/01/19 HTN: Yes (nn compliance) Psychiatric Problems: Yes (Scizophrenia) - Surgical History Orthopedic Surgery: Yes (right knee replacement in 09/08/18,left knee surgery in 2003) - Reproductive History PID: No - Suicide/Smoking/Psychosocial Hx Smoking History: Current every day smoker Have you smoked in the past 12 months: Yes Number of Cigarettes Smoked Daily: 10 Cigars Per Day: 0 'Breaking Loose' booklet given: 06/01/19 Hx Alcohol Use: No Drug/Substance Use Hx: Yes Substance Use Type: Cocaine, Heroin Hx Substance Use Treatment: Yes ED Treatment Course - LABORATORY CBC & Chemistry Diagram: 06/04/19 22:23 06/04/19 23:39 Medical Decision Making - Medical Decision Making 59 year old female with above PMH BIBA to ED from [facility] - heroine, fentanyl, cocaine - for epigastric pain, nausea, vomiting since this AM. Chart review: -06/01/19 Admitted to [facility] for Detox from Heroine/Fentanyl/Cocaine -06/02/19: normal CBC, normal CMP, UA positive for UTI -06/04/19: pt developed epigastric pain, nausea/vomiting; pt was given protonix , pepto-bismol, mylanta without resolution of symptoms; sent to ED Initial Vital Signs Temp Pulse Resp BP Pulse Ox 98.1 F 70 17 145/79 99 06/04/19 19:37 06/04/19 19:37 06/04/19 19:37 06/04/19 19:37 06/04/19 19:37 Afebrile. No tachycardia. No tachypnea. No hypotension. No hypoxia on room air. Labs ordered: CBC, CMP, lipase Imaging ordered: CXR Medications ordered: pepcid, zofran 4 mg IV o nce, normal saline bolus 100 cc once, vicous lidocaine, bentyl 20 mg IM once EKG: rate 49, regular rhythm, normal axis, normal intervals, QTc 419, no acute ST changes. CXR my view: no free air under diaphragm. -Pending official report 06/04/19 21:42 CMP Sodium 135 mmol/L (136-145) L 06/04/19 21:03 Potassium 4.3 mmol/L (3.5-5.1) 06/04/19 21:03 Chloride 97 mmol/L (98-107) L 06/04/19 21:03 Carbon Dioxide 31 mmol/L (21-32) 06/04/19 21:03 Anion Gap 7 MMOL/L (8-16) L 06/04/19 21:03 BUN 9.4 mg/dL (7-18) 06/04/19 21:03 Creatinine 1.0 mg/dL (0.55-1.3) 06/04/19 21:03 Est GFR (CKD-EPI)AfAm 71.92 06/04/19 21:03 Est GFR (CKD-EPI)NonAf 62.05 06/04/19 21:03 Random Glucose 109 mg/dL (74-106) H 06/04/19 21:03 Calcium 11.4 mg/dL (8.5-10.1) H 06/04/19 21:03 Magnesium 2.9 mg/dL (1.8-2.4) H 06/04/19 21:03 Total Bilirubin 0.9 mg/dL (0.2-1) 06/04/19 21:03 AST 13 U/L (15-37) L 06/04/19 21:03 ALT 17 U/L (13-61) 06/04/19 21:03 Alkaline Phosphatase 69 U/L (45-117) 06/04/19 21:03 Total Protein 8.3 g/dl (6.4-8.2) H 06/04/19 21:03 Albumin 4.7 g/dl (3.4-5.0) 06/04/19 21:03 Lipase 47 U/L (73-393) L 06/04/19 21:03 Mild hyponatremia. Mild hypochloremia. Hypercalcemia. No transaminitis. Lipase wnl. Medications ordered: normal saline bolus 1000 cc once 06/04/19 21:50 Pt actively vomiting. Medications ordered: Reglan 10 mg IV once 06/04/19 22:57 CBC WBC 7.6 K/mm3 (4.0-10.0) 06/04/19 22:23 Corrected WBC (auto) Cancelled 06/04/19 21:03 RBC 4.22 M/mm3 (3.60-5.2) 06/04/19 22:23 Hgb 13.0 GM/dL (10.7-15.3) 06/04/19 22:23 Hct 39.5 % (32.4-45.2) 06/04/19 22:23 MCV 93.6 fl (80-96) 06/04/19 22:23 MCH 30.8 pg (25.7-33.7) 06/04/19 22:23 MCHC 32.9 g/dl (32.0-36.0) 06/04/19 22:23 RDW 13.3 % (11.6-15.6) 06/04/19 22:23 Plt Count 272 K/MM3 (134-434) 06/04/19 22:23 MPV 8.2 fl (7.5-11.1) 06/04/19 22:23 Absolute Neuts (auto) 5.7 K/mm3 (1.5-8.0) 06/04/19 22:23 Neutrophils % 75.3 % (42.8-82.8) 06/04/19 22:23 Lymphocytes % 16.8 % (8-40) 06/04/19 22:23 Monocytes % 7.0 % (3.8-10.2) 06/04/19 22:23 Eosinophils % 0.3 % (0-4.5) 06/04/19 22:23 Basophils % 0.6 % (0-2.0) 06/04/19 22:23 Nucleated RBC % 0 % (0-0) 06/04/19 22:23 Platelet Estimate Cancelled 06/04/19 21:03 Platelet Comment Cancelled 06/04/19 21:03 No leukocytosis. No anemia. No left shift. Pt reassessed, sleeping comfortably. 06/04/19 23:36 Pt reassessed, sleeping comfortably. Second IVF bag finished. Labs ordered: repeat CMP 06/05/19 00:28 CMP Sodium 138 mmol/L (136-145) 06/04/19 23:39 Potassium 4.7 mmol/L (3.5-5.1) 06/04/19 23:39 Chloride 105 mmol/L (98-107) 06/04/19 23:39 Carbon Dioxide 27 mmol/L (21-32) 06/04/19 23:39 Anion Gap 7 MMOL/L (8-16) L 06/04/19 23:39 BUN 9.2 mg/dL (7-18) 06/04/19 23:39 Creatinine 0.8 mg/dL (0.55-1.3) 06/04/19 23:39 Est GFR (CKD-EPI)AfAm 94.19 06/04/19 23:39 Est GFR (CKD-EPI)NonAf 81.27 06/04/19 23:39 Random Glucose 93 mg/dL (74-106) 06/04/19 23:39 Calcium 9.3 mg/dL (8.5-10.1) 06/04/19 23:39 Magnesium 2.9 mg/dL (1.8-2.4) H 06/04/19 21:03 Total Bilirubin 0.7 mg/dL (0.2-1) 06/04/19 23:39 AST 13 U/L (15-37) L 06/04/19 23:39 ALT 14 U/L (13-61) 06/04/19 23:39 Alkaline Phosphatase 54 U/L (45-117) 06/04/19 23:39 Total Protein 6.2 g/dl (6.4-8.2) L 06/04/19 23:39 Albumin 3.5 g/dl (3.4-5.0) 06/04/19 23:39 Electrolytes improved. Pt reassessed, reported improvement of symptoms, no vomiting, improved abdominal pain. Pt given PO challenge. 06/05/19 00:51 Pt reported nausea and dry heave with water intake. Pt is now sitting up in bed , too uncomfortable to lie flat. Pt to be admitted for intractable nausea, vomiting, opioid withdrawal, cocaine withdrawal. 06/05/19 01:20 I spoke with IM Resident about patient, pt to be admitted under Dr. Sanchez's care. *DC/Admit/Observation/Transfer Diagnosis at time of Disposition: Hypercalcemia, Intractable nausea and vomiting, Opioid withdrawal - Discharge Dispostion Disposition: HOME Condition at time of disposition: Improved Decision to Admit order: Yes - Referrals - Patient Instructions Printed Discharge Instructions: DI for Hypercalcemia, DI for Drug or Alcohol Withdrawal - Post Discharge Activity
[2019-06-04] MEDS ORDERED: ONDANSETRON 4 MG/2 ML VIAL IVPUSH ONE (19:27)
[2019-06-04] MEDS ORDERED: FAMOTIDINE 20 MG/50 ML IVPB 20 MG/50 ML MG IVPB ONE ×2 (19:27→20:28)
[2019-06-04] MEDS ORDERED: SODIUM CHLORIDE 1,000 ML IV STA ×2 (19:42→21:42)
[2019-06-04] MEDS ORDERED: DICYCLOMINE HCL 20 MG/2 ML AMPUL IM ONE (19:50)
[2019-06-04] MEDS ORDERED: LIDOCAINE VISCOUS 2% ORAL/TOP 20 ML UNIT-DOSE CUP MM ONE (19:50)
[2019-06-04] MEDS ORDERED: ONDANSETRON 4 MG/2 ML VIAL ONE (20:28)
[2019-06-04] MEDS ORDERED: LIDOCAINE VISCOUS 2% ORAL/TOP 20 ML UNIT-DOSE CUP ONE (20:28)
--- NOTE | 2019-06-04 20:34 | PDOC ---
Documentation entered by Amberly Woods SCRIBE, acting as scribe for Harper Starks DO. Harper Starks DO: This documentation has been prepared by the Peggy garber Brenda, SCRIBE, under my direction and personally reviewed by me in its entirety. I confirm that the documentation accurately reflects all work, treatment, procedures, and medical decision making performed by me. Attending Attestation - Resident Resident Name: CalebMariluz - ED Attending Attestation I have performed the following: I have examined & evaluated the patient, The case was reviewed & discussed with the resident, I agree w/resident's findings & plan, Exceptions are as noted - HPI HPI: 06/04/19 20:49 The patient is a year old female, with a significant PMH of HTN (medication noncompliance), schizophrenia (medication noncompliance), GERD (medication noncompliance), pancreatitis, heroine abuse, fentanyl abuse, cocaine abuse and nicotine dependence who presents to the emergency department [facility] from [facility] with constant burning epigastric abdominal pain since this morning. As per patient, her pain and is non-radiating and has no aggravating or alleviating factors. Patient also endorses nausea, NBNB vomiting and chills, along with SOB due to the pain. The patient denies chest pain, headache and dizziness. Denies fever, diarrhea and constipation. Denies dysuria, frequency, urgency and hematuria. Denies any other symptoms. Allergies: NKA Past surgical history: cholecystectomy, hysterectomy, right knee replacement in 09/08/18 Social history: No reported - Physicial Exam PE: 06/04/19 20:49 GENERAL:(+) piloerection. Awake, alert, and fully oriented, in no acute distress HEAD: No signs of trauma EYES: sclera anicteric, conjunctiva clear NECK: Normal ROM, supple, no lymphadenopathy, JVD, or masses LUNGS: Breath sounds equal, clear to auscultation bilaterally. No wheezes, and no crackles HEART: Regular rate and rhythm, normal S1 and S2, no murmurs, rubs or gallops ABDOMEN: Soft, nontender, normoactive bowel sounds. No guarding, no rebound. No masses EXTREMITIES: Normal range of motion, no edema. No clubbing or cyanosis. No cords, erythema, or tenderness NEUROLOGICAL: Cranial nerves II through XII grossly intact. Normal speech. SKIN: Warm, Dry, normal turgor, no rashes or lesions noted. - Medical Decision Making 06/04/19 20:30 I, Dr. Harper Starks, DO, attest that this document has been prepared under my direction and personally reviewed by me in its entirety. I further attest, that it accurately reflects all work, treatment, procedures and medical decision -making performed by me. a/p: 59yo female from [facility] where she is being treated for cocaine and narcotic detox with abd pain, n/v/piloerection and abd cramping -feels different from her pancreatitis hx -symptoms consistent with narcotic withdrawal -no cp/sob -dry mm -no abd ttp -nondistended abd -will send labs -pt is s/p nayan and hyster - last bm was 2 days ago -will send labs, will hydrate, gi meds, bentyl, zofran, pepcid -will monitor and reassess 06/04/19 20:34 cxr clear, no free air under the diaphragm 06/04/19 22:16 pt with persistent vomiting will remedicate and continue ivf pt with calcium elevated dehydrated, ivf 06/05/19 00:29 repeat chem is improved pt has been resting comfortably in the ED will give po challenge 06/05/19 01:18 pt unable to tolerate po will admit resident discussed the case with alysha who accepts pt to service Heart Score/ECG Review - ECG Intrepretation Comment:: 06/04/19 22:16 sinus josh at 49, nl axis, nl interval, no acute st/t wave findings
[2019-06-04 21:27] LABS: INR 1.02 (0.83-1.09)
[2019-06-04 21:30] LABS: ACTIVATED PTT 29.6 SECONDS (25.2-36.5)
[2019-06-04 21:35] LABS: MAGNESIUM 2.9 mg/dL (1.8-2.4)
[2019-06-04 21:41] LABS: ALBUMIN 4.7 g/dl (3.4-5.0); BILIRUBIN,TOTAL 0.9 mg/dL (0.2-1); BLOOD UREA NITROGEN 9.4 mg/dL (7-18); CALCIUM 11.4 mg/dL (8.5-10.1); POTASSIUM 4.3 mmol/L (3.5-5.1); TOT PROT 8.3 g/dl (6.4-8.2)
[2019-06-04] MEDS ORDERED: METOCLOPRAMIDE HCL INJECTION 10 MG/2 ML VIAL IVPUSH ONE (21:46)
[2019-06-04] MEDS ORDERED: METOCLOPRAMIDE HCL INJECTION 10 MG/2 ML VIAL ONE (22:12)
[2019-06-04 22:25] LABS: PH,URINE >= 9.0 (5.0-8.0); URINE APPEARANCE TURBID; URINE BILIRUBIN NEGATIVE (NEGATIVE); URINE COLOR YELLOW; URINE GLUCOSE (UA) NEGATIVE (NEGATIVE); URINE KETONE NEGATIVE (NEGATIVE); URINE LEUK ESTERASE NEGATIVE (NEGATIVE); URINE NITRITE NEGATIVE (NEGATIVE); URINE PROTEIN NEGATIVE (NEGATIVE); URINE UROBILINOGEN 0.2 mg/dL (0.2-1.0)
[2019-06-04 22:41] LABS: BASO % 0.6 % (0-2.0); EOS % 0.3 % (0-4.5); HEMATOCRIT 39.5 % (32.4-45.2); LYMPH % 16.8 % (8-40); MCH 30.8 pg (25.7-33.7); MCHC 32.9 g/dl (32.0-36.0); MEAN CELL VOLUME 93.6 fl (80-96); MEAN PLT VOLUME 8.2 fl (7.5-11.1); NEUT % 75.3 % (42.8-82.8); PLATELET COUNT 272 K/MM3 (134-434); RBC 4.22 M/mm3 (3.60-5.2); RDW 13.3 % (11.6-15.6); WHITE BLOOD COUNT 7.6 K/mm3 (4.0-10.0)
[2019-06-05 00:28] LABS: ALBUMIN 3.5 g/dl (3.4-5.0); BILIRUBIN,TOTAL 0.7 mg/dL (0.2-1); BLOOD UREA NITROGEN 9.2 mg/dL (7-18); CALCIUM 9.3 mg/dL (8.5-10.1); CREATININE 0.8 mg/dL (0.55-1.3); POTASSIUM 4.7 mmol/L (3.5-5.1); TOT PROT 6.2 g/dl (6.4-8.2)
--- NOTE | 2019-06-05 01:26 | PN ---
Teaching Attending Note Name of Resident: Darren Soni ATTENDING PHYSICIAN STATEMENT I saw and evaluated the patient. I reviewed the resident's note and discussed the case with the resident. I agree with the resident's findings and plan as documented. SUBJECTIVE: Patient is a 59 year old woman with PMH of HTN, Tobacco use, Right knee replacement, Cholecystectomy, Hysterectomy, Schizophrenia, GERD, Pancreatitis and Polysubstance abuse (heroin, fentanyl, cocaine), brought to ER from [facility] for epigastric pain since this morning. Patient reports her pain is constant, burning, non-radiating, no alleviating or aggravating factors. Also has nausea and vomiting. Patient denies diarrhea, blood in stool, fever, recent travel, chest pain or shortness of breath. Patient reported she has not eaten all day and is unable to hold down water. Denies any recent travel, sick contacts or ingestion of street/unusual foods. No FH of chronic medical problem. In the ER she got Pepcid, Zofran 4 mg IV, Normal saline bolus 1000 cc once, Viscous lidocaine and Bentyl 20 mg IM once. Urinalysis on 06/02/19 revealed UTI and she was started on PO Bactrim. She was also noted to have hypercalcemia and is on ?Day 3 of methadone detox. OBJECTIVE: Alert Vital Signs Period Temp Pulse Resp BP Sys/Liz Pulse Ox Last 24 Hr 98.1 F 70 17 145/79 99 HEENT: No Jaundice, eye redness or discharge, PERRLA, EOMI. Normocephalic, atraumatic. External ears are normal and hearing is grossly intact. No nasal discharge. Neck: Supple, nontender. No palpable adenopathy or thyromegaly. No JVD Chest: Good effort. Clear to auscultation and percussion. Heart: Regular. No S3, rub or murmur Abdomen: Not distended, soft, nontender and no HSM. No rebound or guarding. Normal bowel sounds. Ext: Peripheral pulses intact. No leg edema. Skin: Warm and dry. No petechiae, rash or ecchymosis. Neuro: Alert. Oriented x3. CN 2-12 grossly intact. Sensation grossly intact in all four extremities and DTR are symmetric. Psych: Appropriate mood and affect. Good insight. Home Medications Medication Instructions Recorded Unobtainable 06/01/19 Abnormal Lab Results 06/04/19 06/04/19 06/04/19 21:03 21:03 22:10 Sodium 135 L Chloride 97 L Anion Gap 7 L Random Glucose 109 H Calcium 11.4 H Magnesium 2.9 H AST 13 L Total Protein 8.3 H Lipase 47 L Urine pH >= 9.0 H D 06/04/19 23:39 Sodium Chloride Anion Gap 7 L Random Glucose Calcium Magnesium AST 13 L Total Protein 6.2 L Lipase Urine pH ASSESSMENT AND PLAN: 1. Abdominal pain syndrome/Vomiting - Likely due to drug withdrawal. Became painfree and felt better after getting the GI cocktail in the ER. CXR is hyperinflated but shows no acute infiltrate. EKG shows sinus bradycardia with no signficant ST-T wave changes. Hypermagnesemia likely due to Mg Citrate and Mg Hydroxide she got at [facility] for constipation. Will get abdominal sonogram, PTH to evaluate hypercalcemia noted on 06/02/19, repeat EKG, continue PO Bactrim for UTI, methadone Detox, IV protonix and ringers lactate IV. 2. Tobacco Use Counseled on risks associated with tobacco use. We will provide patient all the necessary assistance to facilitate smoking cessation and prescribe Nicotine patch. 3. Polysubstance abuse/Alcohol abuse - Will monitor closely for drug and alcohol withdrawal. Implement [facility] librium alcohol withdrawal protocol and do neurochecks. Implement seizure, fall and aspiration precautions. Treat with thiamine and folic acid and monitor electrolytes (Ca,Mg,K,P). Counseled patient about abstaining from illicit drugs and alcohol. Will consult nutrient management specialist and refer to alcohol/drug detox upon discharge. 4. Hypertension - Restart suitable outpatient antihypertensive drugs when clinically appropriate. Revise regimen to ensure [id number] excellent BP control and personal financial counselor patient on the injurious effects of uncontrolled hypertension. Nonpharmacologic measures to control hypertension like weight loss , salt restriction and exercise discussed. Importance of adherence to treatment regimen and attainment of normotension emphasized. 5. DVT prophylaxis - Lovenox 40 mg SQ q 24 hours. 6. Advance directives - Full code
[2019-06-05] MEDS ORDERED: NICOTINE POLACRILEX 2 MG GUM BUC PRN (01:59)
[2019-06-05] MEDS ORDERED: MELATONIN 5 MG TABLETS PO PRN (01:59)
[2019-06-05] MEDS ORDERED: ACETAMINOPHEN 325 MG TABLET (FP) PO PRN (01:59)
[2019-06-05] MEDS ORDERED: SODIUM CHLORIDE 1,000 ML IV SCH (02:00)
[2019-06-05] MEDS ORDERED: METHADONE HCL 10 MG TABLET PO SCH ×2 (02:00→06:00)
[2019-06-05] MEDS ORDERED: METHADONE HCL 5 MG TABLET PO SCH (02:00)
[2019-06-05 03:20] VITALS: BMI 20.5
[2019-06-05] MEDS ORDERED: LACTATED RINGERS SOLUTION 1,000 ML/1,000 ML INFUS.BAG IV SCH (03:45)
[2019-06-05 07:06] LABS: BASO % 0.4 % (0-2.0); EOS % 0.6 % (0-4.5); HEMATOCRIT 37.3 % (32.4-45.2); HEMOGLOBIN 12.4 GM/dL (10.7-15.3); LYMPH % 30.4 % (8-40); MCH 31.1 pg (25.7-33.7); MCHC 33.4 g/dl (32.0-36.0); MEAN PLT VOLUME 8.7 fl (7.5-11.1); MONO % 8.7 % (3.8-10.2); NEUT % 59.9 % (42.8-82.8); PLATELET COUNT 270 K/MM3 (134-434); RBC 4.01 M/mm3 (3.60-5.2); RDW 13.2 % (11.6-15.6); WHITE BLOOD COUNT 7.2 K/mm3 (4.0-10.0)
[2019-06-05 07:26] LABS: ALBUMIN 3.6 g/dl (3.4-5.0); BLOOD UREA NITROGEN 8.7 mg/dL (7-18); CALCIUM 9.8 mg/dL (8.5-10.1); CREATININE 0.8 mg/dL (0.55-1.3); MAGNESIUM 2.3 mg/dL (1.8-2.4); PHOSPHOROUS 3.2 mg/dL (2.5-4.9); POTASSIUM 4.3 mmol/L (3.5-5.1); TOT PROT 6.4 g/dl (6.4-8.2)
[2019-06-05] MEDS ORDERED: PNEUMOC 13-VAL CONJ-DIP CRM/PF 0.5 ML DISP.SYRIN IM ONE (07:59)
[2019-06-05] MEDS ORDERED: PNEUMOCOCCAL 23 VACCINE 0.5 ML VIAL IM ONE (08:45)
[2019-06-05] MEDS ORDERED: SULFAMETHOXAZOLE/TRIMETHOPRIM 800MG/160MG D.S. TABLET PO SCH (10:00)
[2019-06-05] MEDS ORDERED: PANTOPRAZOLE SODIUM 40 MG VIAL IVPUSH SCH (10:00)
[2019-06-05] MEDS ORDERED: FAMOTIDINE 20 MG/50 ML IVPB 20 MG/50 ML MG IVPB SCH (10:00)
[2019-06-05] MEDS ORDERED: NICOTINE 21 MG/24 HOURS TOPICAL PATCH TD SCH (10:00)
[2019-06-05] MEDS ORDERED: PRENATAL VITAMINS W/ FOLIC ACID TABLET (FP) PO SCH (10:00)
[2019-06-05] MEDS ORDERED: ENOXAPARIN NA (PORCINE) 40 MG/0.4 ML DISP.SYRIN SQ SCH (10:00)
[2019-06-05] MEDS ORDERED: THIAMINE HCL 100 MG TABLET (FP) PO SCH (10:00)
--- NOTE | 2019-06-05 11:43 | EKG ---
Test Reason : Blood Pressure : / mmHG Vent. Rate : 049 BPM Atrial Rate : 049 BPM P-R Int : 136 ms QRS Dur : 086 ms QT Int : 464 ms P-R-T Axes : 072 044 046 degrees QTc Int : 419 ms SINUS BRADYCARDIA POSSIBLE LEFT ATRIAL ENLARGEMENT WHEN COMPARED WITH ECG OF 04-JUN-2019 16:31, NO SIGNIFICANT CHANGE WAS FOUND Confirmed by CONNIE ARGUETA MD ([id number]) on 06/05/2019 11:43:33 AM Referred By: Confirmed By:CONNIE ARGUETA MD
--- NOTE | 2019-06-05 13:28 | DS ---
Physical Exam: SUBJECTIVE: 59 y/o F w PMH HTN, polysubstance abuse, and schizophrenia whom presented to ED w abdomnial pain and vomitting while in detox for heroin at [facility] and admitted for gastritis, seen at bedside today. Today, she offers no complaints. She denies vomiting, has no nausea, and is tolerating her diet. She endorses chills otherwise denies NVFD. OBJECTIVE: Vital Signs Temp Pulse Resp BP Pulse Ox 98.2 F 58 L 16 128/66 100 06/05/19 09:58 06/05/19 09:58 06/05/19 09:58 06/05/19 09:58 06/05/19 03:04 PHYSICAL EXAM GENERAL: The patient is awake, alert, and fully oriented, in no acute distress. Thin build. HEAD: NCAT EYES: RAGHU EOMI, sclera anicteric, conjunctiva clear. ENT: Ears normal, nares patent, oropharynx clear without exudates, moist mucous membranes. NECK: Trachea midline, full range of motion, supple. LUNGS: Breath sounds equal, clear to auscultation bilaterally, no wheezes, no crackles, no accessory muscle use. HEART: Regular rate and rhythm, S1, S2 without murmur, rub or gallop. ABDOMEN: Soft, nontender, nondistended, normoactive bowel sounds, no guarding, no rebound, no hepatosplenomegaly, no masses. EXTREMITIES: BL knee scars s/p surgeries. 2+ pulses, warm, well-perfused, no edema. NEUROLOGICAL: Cranial nerves II through XII grossly intact. Normal speech, gait not observed. PSYCH: Normal mood, normal affect. SKIN: Warm, dry, normal turgor, no rashes or lesions noted. LABS Laboratory Results - last 24 hr 06/04/19 06/04/19 06/04/19 21:03 21:03 21:03 WBC Cancelled Corrected WBC (auto) Cancelled RBC Cancelled Hgb Cancelled Hct Cancelled MCV Cancelled MCH Cancelled MCHC Cancelled RDW Cancelled Plt Count Cancelled MPV Cancelled Absolute Neuts (auto) Cancelled Neutrophils % Cancelled Lymphocytes % Cancelled Monocytes % Cancelled Eosinophils % Cancelled Basophils % Cancelled Nucleated RBC % Cancelled Platelet Estimate Cancelled Platelet Comment Cancelled PT with INR 12.00 INR 1.02 PTT (Actin FS) 29.6 Sodium 135 L Potassium 4.3 Chloride 97 L Carbon Dioxide 31 Anion Gap 7 L BUN 9.4 Creatinine 1.0 Est GFR (CKD-EPI)AfAm 71.92 Est GFR (CKD-EPI)NonAf 62.05 Random Glucose 109 H Calcium 11.4 H Phosphorus Magnesium Total Bilirubin 0.9 AST 13 L ALT 17 Alkaline Phosphatase 69 Total Protein 8.3 H Albumin 4.7 Lipase Urine Color Urine Appearance Urine pH Ur Specific [place] Urine Protein Urine Glucose (UA) Urine Ketones Urine Blood Urine Nitrite Urine Bilirubin Urine Urobilinogen Ur Leukocyte Esterase 06/04/19 06/04/19 06/04/19 21:03 22:10 22:23 WBC 7.6 Corrected WBC (auto) RBC 4.22 Hgb 13.0 Hct 39.5 MCV 93.6 MCH 30.8 MCHC 32.9 RDW 13.3 Plt Count 272 MPV 8.2 Absolute Neuts (auto) 5.7 Neutrophils % 75.3 Lymphocytes % 16.8 Monocytes % 7.0 Eosinophils % 0.3 Basophils % 0.6 Nucleated RBC % 0 Platelet Estimate Platelet Comment PT with INR INR PTT (Actin FS) Sodium Potassium Chloride Carbon Dioxide Anion Gap BUN Creatinine Est GFR (CKD-EPI)AfAm Est GFR (CKD-EPI)NonAf Random Glucose Calcium Phosphorus Magnesium 2.9 H Total Bilirubin AST ALT Alkaline Phosphatase Total Protein Albumin Lipase 47 L Urine Color Yellow Urine Appearance Turbid Urine pH >= 9.0 H D Ur Specific [place] 1.014 Urine Protein Negative Urine Glucose (UA) Negative Urine Ketones Negative Urine Blood Negative Urine Nitrite Negative Urine Bilirubin Negative Urine Urobilinogen 0.2 Ur Leukocyte Esterase Negative 06/04/19 06/05/19 06/05/19 23:39 06:19 06:19 WBC 7.2 Corrected WBC (auto) RBC 4.01 Hgb 12.4 Hct 37.3 MCV 93.0 MCH 31.1 MCHC 33.4 RDW 13.2 Plt Count 270 MPV 8.7 Absolute Neuts (auto) 4.3 Neutrophils % 59.9 D Lymphocytes % 30.4 D Monocytes % 8.7 Eosinophils % 0.6 D Basophils % 0.4 Nucleated RBC % 0 Platelet Estimate Platelet Comment PT with INR INR PTT (Actin FS) Sodium 138 137 Potassium 4.7 4.3 Chloride 105 105 Carbon Dioxide 27 25 Anion Gap 7 L 7 L BUN 9.2 8.7 Creatinine 0.8 0.8 Est GFR (CKD-EPI)AfAm 94.19 94.19 Est GFR (CKD-EPI)NonAf 81.27 81.27 Random Glucose 93 88 Calcium 9.3 9.8 Phosphorus 3.2 Magnesium 2.3 Total Bilirubin 0.7 1.0 AST 13 L 12 L ALT 14 14 Alkaline Phosphatase 54 54 Total Protein 6.2 L 6.4 Albumin 3.5 3.6 Lipase Urine Color Urine Appearance Urine pH Ur Specific [place] Urine Protein Urine Glucose (UA) Urine Ketones Urine Blood Urine Nitrite Urine Bilirubin Urine Urobilinogen Ur Leukocyte Esterase HOSPITAL COURSE: Date of Admission:06/05/19 59 y/o F w PMH HTN, polysubstance abuse, and schizophrenia and surgical hx, whom came in c/o abdominal pain and vomiting. Likely due to drug withdrawal. Pt experienced pain relief after getting NS, zofran, and pepcid in the ED. CXR showed no acute infiltrate. EKG showed sinus bradycardia with no signficant ST- T wave changes and NL QTc. Hypermagnesemia found, likely due to Mg Citrate and Mg Hydroxide given at [facility] for constipation. Abdominal US NEG. PTH to evaluate hypercalcemia noted on 06/02/19. She was treated with thiamine and folic acid and monitored her electrolytes (Ca,Mg,K,P). PO Bactrim started for asymptomatic UTI. PT was counseled on risks associated with tobacco use. She was provided all the necessary assistance to facilitate smoking cessation, including nicotine patch here. She was then d/c back to [facility] for methadone detox. Date of Discharge: 06/05/19 Mayito Oleary MD Minutes to complete discharge: 40 Discharge Summary Reason For Visit: OPIOD WITHDRAWAL, INTRACTABLE VOMITING WITH NAUSEA Current Active Problems Hypercalcemia (Acute) Intractable nausea and vomiting (Acute) Opioid withdrawal (Acute) Condition: Improved - Instructions Diet, Activity, Other Instructions: YOUR VISIT You came to the hospital because you were experiencing belly pain and vomiting. You were admitted for care of these symptoms. While here, you received medications to help with nausea and pain. You were also found to have a urine infection and given antibiotics to treat this. You may now return to [facility] to continue detox. MEDICATIONS Please continue to take your home medications as prescribed. You will now be taking a NEW medication for a short term: - Bactrim 160 mg by mouth twice a day for 7 days ADDITIONAL CARE Please make an appointment with a primary care provider 1 week from today. Since you do not have one, you can call to make an appointment at our residents' clinic[place] [address]. If you would like to continue seeing Dr. Mayito Oleary , please ask for a Saturday morning appointment. ADDITIONAL INFORMATION Call [phone] or come directly to the emergency department if you feel unusual headache, vision changes, shortness of breath, chest pain, unusual bleeding, or any other alarming symptoms. Referrals: Floyd Mcfadden MD [Staff Physician] - 1 Week Disposition: [facility] - Home Medications Comprehensive Discharge Medication List: Ambulatory Orders Acetaminophen [Tylenol] 650 mg PO Q6H PRN 06/05/19 Bismuth Subsalicylate [Pepto-Bismol -] 524 mg PO Q1H PRN 06/05/19 Mag Hydrox/Al Hydrox/Simeth [Mylanta Oral Suspension -] 30 ml PO Q6H PRN Magnesium Citrate [Citroma -] 300 ml PO Q48H PRN 06/05/19 Magnesium Hydrox 2400MG/30Ml [Milk of Magnesia -] 30 ml PO DAILY PRN 06/05/19 Melatonin 5 mg PO HS PRN 06/05/19 Menthol/Phenol [Cepastat Lozenge -] 1 each MM Q4H PRN 06/05/19 Methadone [Dolophine -] 5 mg PO ONCE 06/05/19 Methocarbamol [Robaxin -] 500 mg PO Q6H PRN 06/05/19 Nicotine Patch [Nicoderm Patch -] 1 patch TD DAILY 06/05/19 Nicotine Polacrilex [Nicorette] 2 mg BC Q2H PRN 06/05/19 Pnv No.121/Iron/Folic Acid [ Multivitamin Tablet] 1 each PO DAILY Quetiapine Fumarate [Seroquel -] 200 mg PO HS tablet 06/05/19 Sulfamethoxazole/Trimethoprim [Bactrim DS -] 1 tab PO BID 06/05/19 Thiamine HCl [Vitamin B1 -] 100 mg PO DAILY tablet 06/05/19 Thiamine Mononitrate [Vitamin B-1] 100 mg PO HS 06/05/19 hydrOXYzine PAMOATE [Vistaril -] 25 mg PO Q6H PRN 06/05/19 This patient is new to me today: Yes Date on this admission: 06/05/19 Emergency Visit: No Critical Care patient: No - Discharge Referral Referred to [facility] Med P.C.: No ATTENDING PHYSICIAN STATEMENT I saw and evaluated the patient. I reviewed the resident's note and discussed the case with the resident. I agree with the resident's findings and plan as documented. SUBJECTIVE: OBJECTIVE: ASSESSMENT AND PLAN:
--- NOTE | 2019-06-05 13:51 | PN ---
Teaching Attending Note Name of Resident: Mayito Oleary ATTENDING PHYSICIAN STATEMENT I saw and evaluated the patient. I reviewed the resident's note and discussed the case with the resident. I agree with the resident's findings and plan as documented. SUBJECTIVE: Feeling better - no further abdominal pain/nausea/vomiting. No fever /chills. No diarrhea/melena/hematochezia. OBJECTIVE: Afebrile, Hemodynamically Stable. Last Vital Signs Temp Pulse Resp BP Pulse Ox 98.2 F 58 L 16 128/66 100 06/05/19 09:58 06/05/19 09:58 06/05/19 09:58 06/05/19 09:58 06/05/19 03:04 HEENT- Atraumatic, Normocephalic. Heart - S1, S2, RRR Lungs - clear to auscultation Abdomen -Mild epigastric tenderness Extremities- no edema, no calf tenderness. Neuro - AAO x 3. Tone/Power normal all 4 extremities. No tremor. Laboratory Results - last 24 hr 06/04/19 06/04/19 06/04/19 21:03 21:03 21:03 WBC Cancelled Corrected WBC (auto) Cancelled RBC Cancelled Hgb Cancelled Hct Cancelled MCV Cancelled MCH Cancelled MCHC Cancelled RDW Cancelled Plt Count Cancelled MPV Cancelled Absolute Neuts (auto) Cancelled Neutrophils % Cancelled Lymphocytes % Cancelled Monocytes % Cancelled Eosinophils % Cancelled Basophils % Cancelled Nucleated RBC % Cancelled Platelet Estimate Cancelled Platelet Comment Cancelled PT with INR 12.00 INR 1.02 PTT (Actin FS) 29.6 Sodium 135 L Potassium 4.3 Chloride 97 L Carbon Dioxide 31 Anion Gap 7 L BUN 9.4 Creatinine 1.0 Est GFR (CKD-EPI)AfAm 71.92 Est GFR (CKD-EPI)NonAf 62.05 Random Glucose 109 H Calcium 11.4 H Phosphorus Magnesium Total Bilirubin 0.9 AST 13 L ALT 17 Alkaline Phosphatase 69 Total Protein 8.3 H Albumin 4.7 Lipase Urine Color Urine Appearance Urine pH Ur Specific [place] Urine Protein Urine Glucose (UA) Urine Ketones Urine Blood Urine Nitrite Urine Bilirubin Urine Urobilinogen Ur Leukocyte Esterase 06/04/19 06/04/19 06/04/19 21:03 22:10 22:23 WBC 7.6 Corrected WBC (auto) RBC 4.22 Hgb 13.0 Hct 39.5 MCV 93.6 MCH 30.8 MCHC 32.9 RDW 13.3 Plt Count 272 MPV 8.2 Absolute Neuts (auto) 5.7 Neutrophils % 75.3 Lymphocytes % 16.8 Monocytes % 7.0 Eosinophils % 0.3 Basophils % 0.6 Nucleated RBC % 0 Platelet Estimate Platelet Comment PT with INR INR PTT (Actin FS) Sodium Potassium Chloride Carbon Dioxide Anion Gap BUN Creatinine Est GFR (CKD-EPI)AfAm Est GFR (CKD-EPI)NonAf Random Glucose Calcium Phosphorus Magnesium 2.9 H Total Bilirubin AST ALT Alkaline Phosphatase Total Protein Albumin Lipase 47 L Urine Color Yellow Urine Appearance Turbid Urine pH >= 9.0 H D Ur Specific [place] 1.014 Urine Protein Negative Urine Glucose (UA) Negative Urine Ketones Negative Urine Blood Negative Urine Nitrite Negative Urine Bilirubin Negative Urine Urobilinogen 0.2 Ur Leukocyte Esterase Negative 06/04/19 06/05/19 06/05/19 23:39 06:19 06:19 WBC 7.2 Corrected WBC (auto) RBC 4.01 Hgb 12.4 Hct 37.3 MCV 93.0 MCH 31.1 MCHC 33.4 RDW 13.2 Plt Count 270 MPV 8.7 Absolute Neuts (auto) 4.3 Neutrophils % 59.9 D Lymphocytes % 30.4 D Monocytes % 8.7 Eosinophils % 0.6 D Basophils % 0.4 Nucleated RBC % 0 Platelet Estimate Platelet Comment PT with INR INR PTT (Actin FS) Sodium 138 137 Potassium 4.7 4.3 Chloride 105 105 Carbon Dioxide 27 25 Anion Gap 7 L 7 L BUN 9.2 8.7 Creatinine 0.8 0.8 Est GFR (CKD-EPI)AfAm 94.19 94.19 Est GFR (CKD-EPI)NonAf 81.27 81.27 Random Glucose 93 88 Calcium 9.3 9.8 Phosphorus 3.2 Magnesium 2.3 Total Bilirubin 0.7 1.0 AST 13 L 12 L ALT 14 14 Alkaline Phosphatase 54 54 Total Protein 6.2 L 6.4 Albumin 3.5 3.6 Lipase Urine Color Urine Appearance Urine pH Ur Specific [place] Urine Protein Urine Glucose (UA) Urine Ketones Urine Blood Urine Nitrite Urine Bilirubin Urine Urobilinogen Ur Leukocyte Esterase Current Medications Generic Name Dose Route Start Last Admin Trade Name Freq PRN Reason Stop Dose Admin Acetaminophen 650 mg 06/05/19 01:59 Tylenol - PO Q6H PRN PAIN OR FEVER Enoxaparin Sodium 40 mg 06/05/19 10:00 06/05/19 12:20 Lovenox - SQ 40 mg DAILY MANJULA Administration Lactated Ringer's 1,000 ml in 1,000 mls @ 100 mls/hr 06/05/19 03:45 Lactated Ringers Solution IV ASDIR MANJULA Famotidine/Sodium Chloride 20 mg in 50 mls @ 100 mls/hr 06/05/19 10:00 Pepcid 20 Mg Premixed Ivpb - IVPB BID MANJULA Melatonin 5 mg 06/05/19 01:59 Melatonin PO HS PRN INSOMNIA Methadone HCl 10 mg 06/05/19 06:00 06/05/19 06:37 Dolophine - PO 06/06/19 05:59 10 mg ONCE MANJULA Administration Methadone HCl 5 mg 06/06/19 06:00 Dolophine - PO 06/07/19 05:59 ONCE MANJULA Nicotine 21 mg 06/05/19 10:00 06/05/19 12:20 Nicoderm Patch - TD Not Given DAILY [facility] Nicotine Polacrilex 2 mg 06/05/19 01:59 Nicorette Gum - BUC Q2H PRN NICOTINE REPLACEMENT RX Multivit/Folic Acid/Iron 1 tab 06/05/19 10:00 06/05/19 12:21 Vitamins (Sjr) - PO 1 tab DAILY [facility] Administration Quetiapine Fumarate 200 mg 06/05/19 22:00 Seroquel - PO HS MANJULA Thiamine HCl 100 mg 06/05/19 10:00 06/05/19 12:31 Vitamin B1 - PO 100 mg DAILY MANJULA Administration Trimethoprim/Sulfamethoxazole 1 each 06/05/19 10:00 06/05/19 12:21 Bactrim Ds - PO 1 each BID MANJULA Administration Home Medications Medication Instructions Recorded Acetaminophen [Tylenol] 650 mg PO Q6H PRN 06/05/19 Bismuth Subsalicylate 524 mg PO Q1H PRN 06/05/19 [Pepto-Bismol -] Mag Hydrox/Al Hydrox/Simeth 30 ml PO Q6H PRN 06/05/19 [Mylanta Oral Suspension -] Magnesium Citrate [Citroma -] 300 ml PO Q48H PRN 06/05/19 Magnesium Hydrox 2400MG/30Ml [Milk 30 ml PO DAILY PRN 06/05/19 of Magnesia -] Melatonin 5 mg PO HS PRN 06/05/19 Menthol/Phenol [Cepastat Lozenge -] 1 each MM Q4H PRN 06/05/19 Methadone [Dolophine -] 5 mg PO ONCE 06/05/19 Methocarbamol [Robaxin -] 500 mg PO Q6H PRN 06/05/19 Nicotine Patch [Nicoderm Patch -] 1 patch TD DAILY 06/05/19 Nicotine Polacrilex [Nicorette] 2 mg BC Q2H PRN 06/05/19 Pnv No.121/Iron/Folic Acid 1 each PO DAILY 06/05/19 [ Multivitamin Tablet] Quetiapine Fumarate [Seroquel -] 200 mg PO HS tablet 06/05/19 Sulfamethoxazole/Trimethoprim 1 tab PO BID 06/05/19 [Bactrim DS -] Thiamine HCl [Vitamin B1 -] 100 mg PO DAILY tablet 06/05/19 Thiamine Mononitrate [Vitamin B-1] 100 mg PO HS 06/05/19 hydrOXYzine PAMOATE [Vistaril -] 25 mg PO Q6H PRN 06/05/19 ASSESSMENT AND PLAN: 59 year old female with HTN, s/p Right knee replacement, s/p Cholecystectomy, s/ p Hysterectomy, Schizophrenia, GERD, Hx of Pancreatitis and Polysubstance abuse (heroin, fentanyl, cocaine), brought to ER from [facility] for epigastric pain with associated nausea and vomiting. 1. Non-specific abdominal pain - Acute gastritis versus withdrawal symptoms Resolved with H2 oliva Abdominal US negative, s/p cholecystectomy Afebrile, Hemodynamically Stable. Medically Stable for discharge back to [facility] with PPI. 2. Hx of Polysubstance Abuse (Heroin, Fentanyl, cocaine) - on methadone protocol for opiate detox. [facility] to complete Detox protocol. 3, UTI - appears to be on bactrim - complete course. Repeat urine Cx pending. 4. HTN - appears controlled without meds. 5. Schizophrenia -appears stable - continue Quetiapine, Hydroxyzine, DVT Px - Lovenox SQ
[2019-06-05 17:07] VITALS: BP 132/71; PULSE 66; TEMP 98.5
[2019-06-05] MEDS ORDERED: PATIENT'S OWN MEDICATION (NON-FORMULARY) (Thiamine Mononitrate [Vitamin B-1] 100 MG) PO SCH (22:00)
[2019-06-05] MEDS ORDERED: QUEtiapine FUMARATE 200 MG TABLET PO SCH (22:00)
[2019-06-06] MEDS ORDERED: METHADONE HCL 5 MG TABLET PO SCH (06:00)
== END 2019-06-05 17:00 | disposition other institution (70) | DRG 392 ==
LOC: JER 19:09 → JERBED 06-05 00:53 → J7W 06-05 04:15
PROVIDERS: ADMIT Internal Medicine
DX: R11.2 Nausea with vomiting, unspecified (principal); E87.1 Hypo-osmolality and hyponatremia; F14.23 Cocaine dependence with withdrawal; F11.23 Opioid dependence with withdrawal; N39.0 Urinary tract infection, site not specified; E83.52 Hypercalcemia; R10.9 Unspecified abdominal pain; F17.210 Nicotine dependence, cigarettes, uncomplicated; I10 Essential (primary) hypertension; R00.1 Bradycardia, unspecified; F20.9 Schizophrenia, unspecified; K21.9 Gastro-esophageal reflux disease without esophagitis
CPT/HCPCS: 36415; 71045-TC-FY; 76700-TC; 80053; 81003; 83690; 83735; 83970; 84100; 85025; 85610; 85730; 87086; 90732; 93005; 93010; 99285-25; G0009; J7030

== ENCOUNTER 2019-06-05 17:33 | Inpatient (IN) | payer OTHER ==
[2019-06-05 17:41] VITALS: BMI 19.3
[2019-06-05] MEDS ORDERED: BISMUTH SUBSALICYLATE 524 MG/30 ML UD PO PRN (19:37)
[2019-06-05] MEDS ORDERED: MENTHOL/PHENOL 1 EACH UD MM PRN (19:37)
[2019-06-05] MEDS ORDERED: IBUPROFEN 400 MG TABLET (FP) PO PRN (19:37)
[2019-06-05] MEDS ORDERED: ACETAMINOPHEN 325 MG TABLET (FP) PO PRN ×2 (19:37)
--- NOTE | 2019-06-05 20:10 | PN ---
[facility] Progress Note Note: 59 y/o F returned from [facility] where she was transferred to from [facility] 06/04/19 for c/o abdominal pain , states feeling better , denies complaints at this time . Pt found to have UTI , hypermagnesemia , Bactrim x 5 d course. PMHx : HTN, polysubstance abuse, gastritis , schizophrenia Vital Signs - 24 hr 06/05/19 17:34 Temperature 97.2 F L Pulse Rate 69 Respiratory 20 Rate Blood Pressure 118/78 Chart and d/c instructions reviewed , meds continued as per hospital d/c . pt to complete Methadone detox on 06/06/19 , states planning to transfer to rehab .
[2019-06-05] MEDS: QUEtiapine FUMARATE 200 MG TABLET PO SCH (22:16)
[2019-06-05] MEDS: SULFAMETHOXAZOLE/TRIMETHOPRIM 800MG/160MG D.S. TABLET PO SCH (22:16)
[2019-06-05] MEDS: PANTOPRAZOLE 40 MG TABLET (FP) PO SCH (22:16)
[2019-06-05] MEDS: MELATONIN 5 MG TABLETS PO PRN (22:16)
[2019-06-05] MEDS: THIAMINE HCL 100 MG TABLET (FP) PO SCH (22:17)
[2019-06-06] MEDS ORDERED: METHADONE HCL 5 MG TABLET (FOR DETOX USE ONLY) PO ONE (10:00)
[2019-06-06] MEDS: PRENATAL VITAMINS W/ FOLIC ACID TABLET (FP) PO SCH (10:15)
[2019-06-06] MEDS: SULFAMETHOXAZOLE/TRIMETHOPRIM 800MG/160MG D.S. TABLET PO SCH ×2 (10:15→21:09)
[2019-06-06] MEDS: PANTOPRAZOLE 40 MG TABLET (FP) PO SCH ×2 (10:15→21:09)
--- NOTE | 2019-06-06 11:18 | DS ---
[facility] Detox Discharge Summary Admission Date: 06/05/19 Discharge Date: 06/06/19 - History Present History: Cocaine Dependence, Opioid Dependence Additional Comments: Pt is a 59 y/o female with a hx of opioid and cocaine dependence who completed methadone taper detox today. Pt has a HTN,Gastritis; PsyHx of Schizophrenia. Pt reports feels better with no c/o abdominal pain, nausea or vomiting and ready to go to rehab today. Pertinent Past History: HTN Gastritis Schizophrenia - Physical Exam Results Vital Signs: Alert o x 3 NAD Vital Signs Temperature 97.4 F L 06/06/19 10:56 Pulse Rate 102 H 06/06/19 10:56 Respiratory Rate 18 06/06/19 10:56 Blood Pressure 96/71 06/06/19 10:56 O2 Sat by Pulse Oximetry (%) Pertinent Admission Physical Exam Findings: Intractable n/v which has resolved. Current Treatment for Acute UTI - Treatment Hospital Course: Detox Protocol Followed, Detoxed Safely, Responded well, Discharged Condition Good, Rehab Referral Accepted Patient has Accepted a Rehab Referral to: [facility] - Medication Discharge Medications: Ambulatory Orders Pantoprazole Sodium [Protonix] 40 mg PO BID 7 Days #14 tablet. 06/05/19 Quetiapine Fumarate [Seroquel -] 200 mg PO HS tablet 06/05/19 Sulfamethoxazole/Trimethoprim [Bactrim DS -] 1 tab PO BID 06/05/19 - Diagnosis (1) Arthritis Current Visit: Yes Status: Chronic (2) Weight loss Current Visit: Yes Status: Acute (3) Cocaine dependence Current Visit: Yes Status: Acute Qualifiers: Substance use status: uncomplicated Qualified Code(s): F14.20 - Cocaine dependence, uncomplicated (4) Nicotine dependence Current Visit: Yes Status: Acute Qualifiers: Nicotine product type: cigarettes Substance use status: in withdrawal Qualified Code(s): F17.213 - Nicotine dependence, cigarettes, with withdrawal (5) Opioid dependence with withdrawal Current Visit: Yes Status: Acute (6) Gastritis Current Visit: Yes Status: Chronic Qualifiers: Gastritis type: unspecified gastritis Chronicity: unspecified Gastritis bleeding: without bleeding Qualified Code(s): K29.70 - Gastritis, unspecified , without bleeding (7) UTI (urinary tract infection) Current Visit: Yes Status: Acute Qualifiers: Urinary tract infection type: site unspecified (8) H/O left knee surgery Current Visit: Yes Status: Resolved (9) History of hysterectomy Current Visit: Yes Status: Resolved (10) History of right knee joint replacement Current Visit: Yes Status: Resolved (11) Intractable nausea and vomiting Current Visit: Yes Status: Acute Qualifiers: Vomiting type: unspecified Qualified Code(s): R11.2 - Nausea with vomiting , unspecified - AMA Did Patient Leave Against Medical Advice: No
[2019-06-06] MEDS ORDERED: METHOCARBAMOL 750 MG TABLET PO PRN (14:53)
--- NOTE | 2019-06-06 17:05 | HP ---
[facility] Rehab Assess/Revision - Admission History Admitted to Rehab from: [facility] Date of Admission to Rehab: 06/06/19 - Vital signs Vital Signs: Vital Signs Period Temp Pulse Resp BP Sys/Liz Pulse Ox Last 24 Hr 97.2 F-97.8 F 57-102 16-20 93-130/57-78 - Findings Detox History & Physical reviewed: Yes Concur with findings: Yes Comments/Additional Findings: 59 y/o female with a hx of heroin,fentanyl and cocaine dependence referred to rehab. PMhx of HTN;Gastritis; left knee sx; Right knee replacement; Total hysterectomy r/t fibroid uterus; PsycHx: Schizophrenia. Currently on Bactrim Ds 1 tab po bid for uti x 5 days starting and ending 06/09/19. Inpatient Rehab Admission - Rehab Decision to Admit Inpatient rehab admission?: Yes - Initial Determination Are CD services needed?: Yes Free of communicable disease: Yes Not in need of hospitalization: Yes - Rehab Admission Criteria Previous failed treatment: Yes Poor recovery environment: Yes Comorbidities: Yes Lacks judgement: Yes Patient is meeting Inpatient Rehab admission criteria:: Yes
[2019-06-06] MEDS ORDERED: METHOCARBAMOL 500 MG TABLET PO PRN (17:21)
[2019-06-06] MEDS: METHOCARBAMOL 500 MG TABLET PO PRN ×2 (17:33→22:24)
[2019-06-06] MEDS: QUEtiapine FUMARATE 200 MG TABLET PO SCH (21:08)
[2019-06-06] MEDS: THIAMINE HCL 100 MG TABLET (FP) PO SCH (21:08)
[2019-06-07] MEDS: SULFAMETHOXAZOLE/TRIMETHOPRIM 800MG/160MG D.S. TABLET PO SCH ×2 (09:42→21:08)
[2019-06-07] MEDS: PRENATAL VITAMINS W/ FOLIC ACID TABLET (FP) PO SCH (09:43)
[2019-06-07] MEDS: METHOCARBAMOL 500 MG TABLET PO PRN ×3 (09:43→21:08)
[2019-06-07] MEDS: PANTOPRAZOLE 40 MG TABLET (FP) PO SCH ×2 (09:43→21:08)
--- NOTE | 2019-06-07 17:02 | PN ---
S Progress Note Note: chronic low back pain Vital Signs Temperature 97.9 F 06/07/19 07:14 Pulse Rate 82 06/07/19 07:14 Respiratory Rate 18 06/07/19 07:14 Blood Pressure 104/69 06/07/19 07:14 O2 Sat by Pulse Oximetry (%) will give lidoderm patch close monitoring
[2019-06-07] MEDS: LIDOCAINE 5% TOPICAL PATCH TP SCH (17:47)
[2019-06-07] MEDS: QUEtiapine FUMARATE 200 MG TABLET PO SCH (21:08)
[2019-06-07] MEDS: THIAMINE HCL 100 MG TABLET (FP) PO SCH (21:08)
[2019-06-07] MEDS: LIDOCAINE PATCH REMOVAL MC SCH (21:09)
[2019-06-08] MEDS ORDERED: PT OWN MED DRAWER 7, Y5N ONE ×2 (08:29→12:13)
[2019-06-08] MEDS: LIDOCAINE 5% TOPICAL PATCH TP SCH (10:04)
[2019-06-08] MEDS: PRENATAL VITAMINS W/ FOLIC ACID TABLET (FP) PO SCH (10:04)
[2019-06-08] MEDS: PANTOPRAZOLE 40 MG TABLET (FP) PO SCH ×2 (10:04→21:41)
[2019-06-08] MEDS: METHOCARBAMOL 500 MG TABLET PO PRN ×2 (10:05→14:41)
[2019-06-08] MEDS: SULFAMETHOXAZOLE/TRIMETHOPRIM 800MG/160MG D.S. TABLET PO SCH ×2 (11:00→21:41)
--- NOTE | 2019-06-08 13:53 | PN ---
"[facility] Progress Note (SOAP) Subjective: Patient requesting suboxone MAT. There were no prescriptions for suboxone in [place] She received suboxone prescriptions in [facility] in 07/2018, 04/2019, & 2018. Patient completed detox and was transferred to rehab on 06/05/2019. Last dose of methadone on 06/05. Search Terms: Mohit Guerra, 1960 Search Date: 06/08/2019 01:47:10 PM States Searched: [place], [place], [place], [place], [place] This report was requested by: Yue Hoskins | Reference #: [id number] Prescriptions Dispensed in [place] Patient Name: MOHIT GUERRA Date: 1960 Address: [address] [place] [id number] Sex: Female 02/07/2018 02/07/2018 GABAPENTIN 600 MG TABLET 90.0 30 GOLDMAN, LEIGH 04/11/2018 04/11/2018 GABAPENTIN 600 MG TABLET 90.0 30 GOLDMAN, LEIGH 05/10/2018 05/10/2018 GABAPENTIN 600 MG TABLET 90.0 30 GOLDMAN, LEIGH 09/18/2018 09/19/2018 OXYCODONE-ACETAMINOPHEN 5-325 30.0 5 MD HANDY, NANCY 09/29/2018 10/02/2018 OXYCODONE-ACETAMINOPHEN 5-325 24.0 4 MD CHRIS, TIM Patient Name: MOHIT GUERRA Date: 1960 Address: [address] [place] [address] Sex: Female 07/08/2018 07/10/2018 SUBOXONE 2 MG-0.5 MG SL FILM 18.0 3 MD BOWMAN MARIE 07/18/2018 07/18/2018 SUBOXONE 4 MG-1 MG SL FILM 30.0 15 MD ALVAREZ CONSTANTINE 07/18/2018 07/18/2018 SUBOXONE 2 MG-0.5 MG SL FILM 30.0 15 MD ALVAREZ CONSTANTINE 07/28/2018 08/01/2018 SUBOXONE 2 MG-0.5 MG SL FILM 28.0 14 KIERSTEN PERALTA 07/26/2018 08/01/2018 SUBOXONE 4 MG-1 MG SL FILM 28.0 14 KIERSTEN PERALTA 05/02/2019 05/02/2019 SUBOXONE 8 MG-2 MG SL FILM 42.0 14 OJELADE, I, RICKEY 05/16/2019 05/16/2019 BUPRENORP-NALOX 8-2 MG SL FILM 42.0 14 Massimo DUFFY MICHAEL Patient reports irritability, muscle aches and pains. Objective: General: no apparent distress HEENT: PERRLA Lungs: clear Heart: s1 s2 abd +BS skin: clear, neuro: CN 2-12 intact, no neurological deficits noted. 06/08/19 15:38 Assessment: 06/08/19 15:39 opioid withdrawal Plan: Urine Tox ordered. Encouraged patient to use vistaril,increase hydration, take pain medicine and muscle relaxants as ordered. Will follow up tomorrow when her counselor is here to discuss referral to suboxone treatment program."
[2019-06-08] MEDS: THIAMINE HCL 100 MG TABLET (FP) PO SCH (21:41)
[2019-06-08] MEDS: LIDOCAINE PATCH REMOVAL MC SCH (21:42)
[2019-06-08] MEDS: MELATONIN 5 MG TABLETS PO PRN (21:42)
[2019-06-08] MEDS: QUEtiapine FUMARATE 200 MG TABLET PO SCH (21:43)
[2019-06-09] MEDS: METHOCARBAMOL 500 MG TABLET PO PRN ×3 (00:34→21:20)
[2019-06-09] MEDS: hydrOXYzine PAMOATE 25 MG CAPSULE (FP) PO PRN ×3 (00:34→21:21)
[2019-06-09] MEDS: SULFAMETHOXAZOLE/TRIMETHOPRIM 800MG/160MG D.S. TABLET PO SCH (09:17)
[2019-06-09] MEDS: PANTOPRAZOLE 40 MG TABLET (FP) PO SCH ×2 (09:17→21:20)
[2019-06-09] MEDS: PRENATAL VITAMINS W/ FOLIC ACID TABLET (FP) PO SCH (09:17)
[2019-06-09] MEDS: LIDOCAINE 5% TOPICAL PATCH TP SCH (09:17)
--- NOTE | 2019-06-09 12:33 | PN ---
[facility] COWS - Scale Resting Pulse: 1= CO 81-100 Sweatin= Chills/Flushing Restless Observation: 1= Difficult to Sit Still Pupil Size: 0= Normal to Room Light Bone or Joint Aches: 2= Severe Diffuse Aches Runny Nose/ Eye Tearin= Runny Nose/Eyes GI Upset > 30mins: 0= None Tremor Observation of Outstretched Hands: 2= Slight Tremor Visible Yawning Observation: 1= 1-2x During Session Anxiety or Irritability: 2=Irritable/Anxious Goose Flesh Skin: 0=Smooth Skin (Since she started taking the muscle relaxer, her hands and feet are not cramping. Still with generalized aches and pains.) COWS Score: 12 BHS Progress Note (SOAP) Subjective: Reports symptoms of withdrawal from opiates. Please see previous note for [facility] I -Stop report. Objective: Utox was positive for methadone, last dose was 06/05 in detox General: Agitated, irritable HEENT: _PERRLA, < 1mm Lungs: clear Heart: s1 s2 audible Abd: +BS neuro: CN 2-12 intact MSK: full weight bearing, full ROM, steady gait. 06/09/19 12:35 06/09/19 12:35 Vital Signs (72 hours) 06/07/19 06/07/19 06/07/19 00:30 03:30 07:14 Temperature 97.9 F Pulse Rate 82 Respiratory 18 18 18 Rate Blood Pressure 104/69 06/08/19 06/08/19 06/08/19 00:30 03:30 07:25 Temperature 97.5 F L Pulse Rate 99 H Respiratory 18 18 18 Rate Blood Pressure 101/70 06/09/19 06/09/19 06/09/19 03:30 06:49 10:00 Temperature 98.1 F Pulse Rate 103 H 93 H Respiratory 18 18 Rate Blood Pressure 102/71 107/70 06/09/19 12:42 Assessment: withdrawal from opiates/ 06/09/19 12:35 Plan: Will start on suboxone 4mg BID; continue to monitor.
[2019-06-09] MEDS: BUPRENORPHINE/NALOXONE 4 MG/1 MG FILM PACKET SL SCH ×2 (13:02→21:20)
[2019-06-09] MEDS: NICOTINE POLACRILEX 2 MG GUM BUC PRN (19:26)
[2019-06-09] MEDS: THIAMINE HCL 100 MG TABLET (FP) PO SCH (21:20)
[2019-06-09] MEDS: QUEtiapine FUMARATE 200 MG TABLET PO SCH (21:20)
[2019-06-09] MEDS: MELATONIN 5 MG TABLETS PO PRN (21:20)
[2019-06-09] MEDS: LIDOCAINE PATCH REMOVAL MC SCH (21:40)
[2019-06-10] MEDS: LIDOCAINE 5% TOPICAL PATCH TP SCH (10:24)
[2019-06-10] MEDS: PRENATAL VITAMINS W/ FOLIC ACID TABLET (FP) PO SCH (10:24)
[2019-06-10] MEDS: PANTOPRAZOLE 40 MG TABLET (FP) PO SCH ×2 (10:24→21:21)
[2019-06-10] MEDS: BUPRENORPHINE/NALOXONE 4 MG/1 MG FILM PACKET SL SCH (10:24)
[2019-06-10] MEDS: METHOCARBAMOL 500 MG TABLET PO PRN ×2 (10:26→21:21)
[2019-06-10] MEDS: hydrOXYzine PAMOATE 25 MG CAPSULE (FP) PO PRN (19:07)
[2019-06-10] MEDS: MELATONIN 5 MG TABLETS PO PRN (21:21)
[2019-06-10] MEDS: THIAMINE HCL 100 MG TABLET (FP) PO SCH (21:21)
[2019-06-10] MEDS: QUEtiapine FUMARATE 200 MG TABLET PO SCH (21:21)
[2019-06-10] MEDS: LIDOCAINE PATCH REMOVAL MC SCH (21:22)
[2019-06-10] MEDS: BUPRENORPHINE/NALOXONE 8 MG/2 MG FILM PACKET SL SCH (21:23)
[2019-06-11] MEDS: LIDOCAINE 5% TOPICAL PATCH TP SCH (10:27)
[2019-06-11] MEDS: PRENATAL VITAMINS W/ FOLIC ACID TABLET (FP) PO SCH (10:27)
[2019-06-11] MEDS: BUPRENORPHINE/NALOXONE 8 MG/2 MG FILM PACKET SL SCH ×2 (10:27→21:16)
[2019-06-11] MEDS: PANTOPRAZOLE 40 MG TABLET (FP) PO SCH ×2 (10:28→21:13)
[2019-06-11] MEDS: METHOCARBAMOL 500 MG TABLET PO PRN ×2 (10:28→21:16)
[2019-06-11] MEDS: hydrOXYzine PAMOATE 25 MG CAPSULE (FP) PO PRN ×2 (10:28→18:28)
--- NOTE | 2019-06-11 16:26 | PN ---
[facility] Progress Note Note: Pt reports she takes Gabapentin 100 mg po three times a day months ago and meloxican for pain. Requesting to restart due to her pain. Pt reports she brought her meds and in property. Vital Signs - 24 hr 06/11/19 06/11/19 06/11/19 00:30 03:30 07:04 Temperature 97.9 F Pulse Rate 80 Respiratory 18 18 18 Rate Blood Pressure 97/62 A/P chronic back pain Will order Gabapentin 100 mg po tid prn increase po fluids.
[2019-06-11] MEDS: MELATONIN 5 MG TABLETS PO PRN (21:13)
[2019-06-11] MEDS: QUEtiapine FUMARATE 200 MG TABLET PO SCH (21:13)
[2019-06-11] MEDS: GABAPENTIN 100 MG CAPSULE (FP) PO PRN (21:13)
[2019-06-11] MEDS: THIAMINE HCL 100 MG TABLET (FP) PO SCH (21:13)
[2019-06-11] MEDS: LIDOCAINE PATCH REMOVAL MC SCH (21:14)
[2019-06-11] MEDS ORDERED: GABAPENTIN 100 MG CAPSULE (FP) PO SCH (22:00)
[2019-06-12] MEDS: PANTOPRAZOLE 40 MG TABLET (FP) PO SCH ×2 (10:47→21:10)
[2019-06-12] MEDS: PRENATAL VITAMINS W/ FOLIC ACID TABLET (FP) PO SCH (10:47)
[2019-06-12] MEDS: BUPRENORPHINE/NALOXONE 8 MG/2 MG FILM PACKET SL SCH ×2 (10:48→21:12)
[2019-06-12] MEDS: LIDOCAINE 5% TOPICAL PATCH TP SCH (10:48)
[2019-06-12] MEDS: GABAPENTIN 100 MG CAPSULE (FP) PO PRN (10:49)
[2019-06-12] MEDS: METHOCARBAMOL 500 MG TABLET PO PRN ×2 (10:49→21:10)
[2019-06-12] MEDS: MELATONIN 5 MG TABLETS PO PRN (21:09)
[2019-06-12] MEDS: THIAMINE HCL 100 MG TABLET (FP) PO SCH (21:09)
[2019-06-12] MEDS: hydrOXYzine PAMOATE 25 MG CAPSULE (FP) PO PRN (21:10)
[2019-06-12] MEDS: QUEtiapine FUMARATE 200 MG TABLET PO SCH (21:10)
[2019-06-12] MEDS: LIDOCAINE PATCH REMOVAL MC SCH (21:12)
[2019-06-13] MEDS: BUPRENORPHINE/NALOXONE 8 MG/2 MG FILM PACKET SL SCH ×2 (10:16→21:04)
[2019-06-13] MEDS: PANTOPRAZOLE 40 MG TABLET (FP) PO SCH ×2 (10:16→21:01)
[2019-06-13] MEDS: hydrOXYzine PAMOATE 25 MG CAPSULE (FP) PO PRN ×3 (10:16→19:30)
[2019-06-13] MEDS: LIDOCAINE 5% TOPICAL PATCH TP SCH (10:16)
[2019-06-13] MEDS: PRENATAL VITAMINS W/ FOLIC ACID TABLET (FP) PO SCH (10:16)
[2019-06-13] MEDS: METHOCARBAMOL 500 MG TABLET PO PRN ×3 (10:21→21:01)
[2019-06-13] MEDS: GABAPENTIN 100 MG CAPSULE (FP) PO PRN (14:41)
[2019-06-13] MEDS: THIAMINE HCL 100 MG TABLET (FP) PO SCH (21:01)
[2019-06-13] MEDS: LIDOCAINE PATCH REMOVAL MC SCH (21:01)
[2019-06-13] MEDS: QUEtiapine FUMARATE 200 MG TABLET PO SCH (21:01)
[2019-06-13] MEDS: MELATONIN 5 MG TABLETS PO PRN (21:04)
[2019-06-14] MEDS: METHOCARBAMOL 500 MG TABLET PO PRN (05:39)
[2019-06-14] MEDS: GABAPENTIN 100 MG CAPSULE (FP) PO PRN ×2 (05:39→16:51)
[2019-06-14] MEDS: PRENATAL VITAMINS W/ FOLIC ACID TABLET (FP) PO SCH (10:05)
[2019-06-14] MEDS: PANTOPRAZOLE 40 MG TABLET (FP) PO SCH ×2 (10:05→21:31)
[2019-06-14] MEDS: LIDOCAINE 5% TOPICAL PATCH TP SCH (10:05)
[2019-06-14] MEDS: BUPRENORPHINE/NALOXONE 8 MG/2 MG FILM PACKET SL SCH ×2 (10:05→21:33)
[2019-06-14] MEDS: hydrOXYzine PAMOATE 25 MG CAPSULE (FP) PO PRN ×2 (10:06→16:51)
[2019-06-14] MEDS: NICOTINE POLACRILEX 2 MG GUM BUC PRN (21:01)
[2019-06-14] MEDS: QUEtiapine FUMARATE 200 MG TABLET PO SCH (21:31)
[2019-06-14] MEDS: LIDOCAINE PATCH REMOVAL MC SCH (21:31)
[2019-06-14] MEDS: MELATONIN 5 MG TABLETS PO PRN (21:32)
[2019-06-14] MEDS: THIAMINE HCL 100 MG TABLET (FP) PO SCH (21:33)
[2019-06-15] MEDS: GABAPENTIN 100 MG CAPSULE (FP) PO PRN ×2 (06:35→22:08)
[2019-06-15] MEDS: hydrOXYzine PAMOATE 25 MG CAPSULE (FP) PO PRN ×2 (06:35→22:08)
[2019-06-15] MEDS: PANTOPRAZOLE 40 MG TABLET (FP) PO SCH ×2 (10:39→22:08)
[2019-06-15] MEDS: LIDOCAINE 5% TOPICAL PATCH TP SCH (10:39)
[2019-06-15] MEDS: BUPRENORPHINE/NALOXONE 8 MG/2 MG FILM PACKET SL SCH ×2 (10:39→22:07)
[2019-06-15] MEDS: PRENATAL VITAMINS W/ FOLIC ACID TABLET (FP) PO SCH (10:39)
[2019-06-15] MEDS: COLLOIDAL OATMEAL 1 BAR EACH TP PRN (10:40)
[2019-06-15] MEDS: THIAMINE HCL 100 MG TABLET (FP) PO SCH (22:08)
[2019-06-15] MEDS: QUEtiapine FUMARATE 200 MG TABLET PO SCH (22:08)
[2019-06-15] MEDS: METHOCARBAMOL 500 MG TABLET PO PRN (22:08)
[2019-06-15] MEDS: LIDOCAINE PATCH REMOVAL MC SCH (22:09)
[2019-06-16] MEDS: GABAPENTIN 100 MG CAPSULE (FP) PO PRN (06:30)
[2019-06-16] MEDS: PANTOPRAZOLE 40 MG TABLET (FP) PO SCH ×2 (09:12→21:54)
[2019-06-16] MEDS: PRENATAL VITAMINS W/ FOLIC ACID TABLET (FP) PO SCH (09:12)
[2019-06-16] MEDS: LIDOCAINE 5% TOPICAL PATCH TP SCH (09:12)
[2019-06-16] MEDS: BUPRENORPHINE/NALOXONE 8 MG/2 MG FILM PACKET SL SCH ×3 (09:12→21:56)
[2019-06-16] MEDS: METHOCARBAMOL 500 MG TABLET PO PRN (09:13)
[2019-06-16] MEDS: NICOTINE POLACRILEX 2 MG GUM BUC PRN (09:15)
--- NOTE | 2019-06-16 11:36 | PN ---
[facility] COWS - Scale Resting Pulse: 1= HI 81-100 Sweatin= Chills/Flushing Restless Observation: 0= Sits Still Pupil Size: 0= Normal to Room Light Bone or Joint Aches: 1= Mild Discomfort Runny Nose/ Eye Tearin= Runny Nose/Eyes GI Upset > 30mins: 1= Stomach Cramp Tremor Observation of Outstretched Hands: 1= Tremor [place], Not Seen Yawning Observation: 0= None Anxiety or Irritability: 2=Irritable/Anxious Goose Flesh Skin: 0=Smooth Skin COWS Score: 9 BHS Progress Note (SOAP) Subjective: Patient's standing dose of suboxone in the community was 8mg TID. Presently on 8mg BID. COWS score 9 Objective: General: irritable HEENT: PERRLA Lungs: clear Heart: s1 s2 Abd: +BS Skin:clear MSK: Right knee, slight swelling (S/P knee replacement 4 months ago) 06/16/19 11:33 Assessment: Mild withdrawal symptoms 06/16/19 11:35 Plan: Suboxone 8mg tid, her maintenance dose while in the community.
--- NOTE | 2019-06-16 11:40 | PN ---
[facility] Progress Note (SOAP) Subjective: C/o numbness and tingling, right leg, lateral side, big toe and second toe.PMHx of knee replacement 4 months ago Objective: General: irritable Skin: clear, color consistent trunk and extremities Neuro: 2-12 intact, sensitive to sharp and blunt touch MSK: Slight swelling right knee, no swelling noted calf or ankle. 06/16/19 11:37 Assessment: Numbness and tingling residual from knee surgery 06/16/19 11:39 Plan: Increased gabapentin to 200mg TID.
[2019-06-16] MEDS: GABAPENTIN 100 MG CAPSULE (FP) PO SCH ×2 (14:11→21:54)
[2019-06-16] MEDS: MELATONIN 5 MG TABLETS PO PRN (21:53)
[2019-06-16] MEDS: QUEtiapine FUMARATE 200 MG TABLET PO SCH (21:54)
[2019-06-16] MEDS: THIAMINE HCL 100 MG TABLET (FP) PO SCH (21:54)
[2019-06-16] MEDS: hydrOXYzine PAMOATE 25 MG CAPSULE (FP) PO PRN (21:55)
[2019-06-16] MEDS: LIDOCAINE PATCH REMOVAL MC SCH (22:03)
[2019-06-17] MEDS: GABAPENTIN 100 MG CAPSULE (FP) PO SCH ×3 (06:56→21:49)
[2019-06-17] MEDS: BUPRENORPHINE/NALOXONE 8 MG/2 MG FILM PACKET SL SCH ×3 (06:56→23:20)
[2019-06-17] MEDS: PANTOPRAZOLE 40 MG TABLET (FP) PO SCH ×2 (10:48→21:49)
[2019-06-17] MEDS: PRENATAL VITAMINS W/ FOLIC ACID TABLET (FP) PO SCH (10:48)
[2019-06-17] MEDS: NICOTINE POLACRILEX 2 MG GUM BUC PRN (10:50)
[2019-06-17] MEDS: METHOCARBAMOL 500 MG TABLET PO PRN ×2 (10:50→21:49)
[2019-06-17] MEDS: LIDOCAINE 5% TOPICAL PATCH TP SCH (10:50)
--- NOTE | 2019-06-17 13:10 | CONSULT ---
[facility] Psychiatric Consult - Data Date of interview: 06/17/19 Admission source: Transfer from [address] [place] [address]. Identifying data: Admission to [address] for this 59 y/o AA female who completed detoxification (heroin, cocaine, fentanyl) at [address] [place] [address]. Patient is single, a mother of one, domiciled (resides with relatives in [place]), unemployed, disabled and supported on [facility] benefits. Substance Abuse History: Revisited in this interview. Substance abuse profile is confirmed by patient, as detailed in current [facility] report on admission : Smoking history: Current every day smoker. Have you smoked in the past 12 months: Yes. Aproximately how many cigarettes per day: 10. Cigars Per Day: 0. Hx Chewing Tobacco Use: No. Initiated information on smoking cessation: Yes. 'Breaking Loose' booklet given: 06/01/19. - Substance & Tx. History. Hx Alcohol Use: No. Hx Substance Use: Yes. Substance Use Type: Cocaine, Heroin. - Substances abused. Heroin. Substance route: Inhalation. Frequency: Daily. Amount used: 1 bundle. Age of first use: 27. Date of last use: . Other. Other (specify): fentanyl. Substance route: Inhalation. Frequency: 1-3 times last 30 days. Amount used: 1 bundle. Age of first use: 59. Date of last use: 05/31/19. Cocaine. Substance route: Smoking. Frequency: 3-6 times per week. Amount used: 20$. Age of first use: 46. Date of last use: 05/31/19 Medical History: Medical history is remarkable for hypertension, GERD, hyperthyroidism, antecedent of orthosurgery (total right knee replacement + partial left knee replacement) and a history of hysterectomy (fibroids). Psychiatric History: Patient endorses an extensive history of mental illness ( onset at age 24) that warranted multiple psychiatric hospitalizations ([facility] and [facility]). Reportably diagnosed with Schizophrenia. Ms Szymanski indicates that she is seeing " a new psychiatrist " at the [facility] ( [facility]). Medicated with seroquel + zolpidem + prazosin (self-report). Review of external pharmacy activity shows refills for suboxone + paliperidone (oral) at [facility] and [facility] (03/09/19 + 05/02/19 respectively). Patient reports chronic non-adherence with psychotropic medications. " I don't take medications when I use drugs." Patient denies history of suicide attempts. Physical/Sexual Abuse/Trauma History: Patient denies history of abuse. Additional Comment: No toxicology available for review. Mental Status Exam - Mental Status Exam Alert and Oriented to: Time, Place, Person Cognitive Function: Good Patient Appearance: Well Groomed Mood: Apprehensive (mildly apprehensive over getting prazosin ) Patient Behavior: Talkative, Appropriate, Cooperative Speech Pattern: Clear, Appropriate Voice Loudness: Normal Thought Process: Goal Oriented (considerably improved) Thought Disorder: Not Present Hallucinations: Denies Suicidal Ideation: Denies Homicidal Ideation: Denies Insight/Judgement: Fair Sleep: Poorly, Difficulty falling asleep Appetite: Good Muscle strength/Tone: Normal Gait/Station: Normal Psychiatric Findings - Problem List ([place] 1, 2,3) (1) History of schizophrenia Current Visit: Yes Status: Chronic (2) Opioid dependence Current Visit: Yes Status: Chronic (3) Cocaine dependence Current Visit: Yes Status: Chronic Qualifiers: Substance use status: uncomplicated Qualified Code(s): F14.20 - Cocaine dependence, uncomplicated (4) Nicotine dependence Current Visit: Yes Status: Chronic Qualifiers: Nicotine product type: cigarettes Substance use status: in withdrawal Qualified Code(s): F17.213 - Nicotine dependence, cigarettes, with withdrawal (5) Substance induced mood disorder Current Visit: Yes Status: Chronic (6) Insomnia Current Visit: Yes Status: Chronic - Initial Treatment Plan Initial Treatment Plan: Psychoeducation. Sleep hygiene. Support. Attempt made to collect collateral information from nurse outreach case manager Edmundo Hairston at ([facility]) in [place], [place]. No response. Groups. Counseling. Continue seroquel 200 mg po hs. Informed consent given. Observation.
[2019-06-17] MEDS: THIAMINE HCL 100 MG TABLET (FP) PO SCH (21:49)
[2019-06-17] MEDS: hydrOXYzine PAMOATE 25 MG CAPSULE (FP) PO PRN (21:49)
[2019-06-17] MEDS: QUEtiapine FUMARATE 200 MG TABLET PO SCH (21:49)
[2019-06-17] MEDS: MELATONIN 5 MG TABLETS PO PRN (21:50)
[2019-06-17] MEDS: LIDOCAINE PATCH REMOVAL MC SCH (21:52)
[2019-06-18] MEDS: BUPRENORPHINE/NALOXONE 8 MG/2 MG FILM PACKET SL SCH ×3 (06:17→21:41)
[2019-06-18] MEDS: GABAPENTIN 100 MG CAPSULE (FP) PO SCH ×3 (06:17→21:37)
[2019-06-18] MEDS ORDERED: BUPRENORPHINE/NALOXONE 8 MG/2 MG FILM PACKET SL SCH (10:00)
[2019-06-18] MEDS: PANTOPRAZOLE 40 MG TABLET (FP) PO SCH ×2 (10:42→21:36)
[2019-06-18] MEDS: PRENATAL VITAMINS W/ FOLIC ACID TABLET (FP) PO SCH (10:42)
[2019-06-18] MEDS: LIDOCAINE 5% TOPICAL PATCH TP SCH (10:42)
[2019-06-18] MEDS: METHOCARBAMOL 500 MG TABLET PO PRN ×2 (10:43→21:36)
[2019-06-18] MEDS: hydrOXYzine PAMOATE 25 MG CAPSULE (FP) PO PRN ×2 (10:43→17:58)
[2019-06-18] MEDS: NICOTINE POLACRILEX 2 MG GUM BUC PRN (10:45)
[2019-06-18] MEDS: THIAMINE HCL 100 MG TABLET (FP) PO SCH (21:36)
[2019-06-18] MEDS: QUEtiapine FUMARATE 200 MG TABLET PO SCH (21:37)
[2019-06-18] MEDS: diphenhydrAMINE HCL 50 MG CAPSULE PO PRN (21:39)
[2019-06-18] MEDS: LIDOCAINE PATCH REMOVAL MC SCH (22:01)
[2019-06-19] MEDS: GABAPENTIN 100 MG CAPSULE (FP) PO SCH ×3 (06:02→21:17)
[2019-06-19] MEDS: BUPRENORPHINE/NALOXONE 8 MG/2 MG FILM PACKET SL SCH ×3 (06:03→21:17)
[2019-06-19] MEDS: METHOCARBAMOL 500 MG TABLET PO PRN (06:03)
[2019-06-19] MEDS: LIDOCAINE 5% TOPICAL PATCH TP SCH (10:10)
[2019-06-19] MEDS: PRENATAL VITAMINS W/ FOLIC ACID TABLET (FP) PO SCH (10:10)
[2019-06-19] MEDS: PANTOPRAZOLE 40 MG TABLET (FP) PO SCH ×2 (10:10→21:18)
[2019-06-19] MEDS: hydrOXYzine PAMOATE 25 MG CAPSULE (FP) PO PRN (10:11)
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
[2019-06-19] MEDS: PRAZOSIN HCL 1 MG CAPSULE PO SCH (21:17)
[2019-06-19] MEDS: THIAMINE HCL 100 MG TABLET (FP) PO SCH (21:18)
[2019-06-19] MEDS: QUEtiapine FUMARATE 200 MG TABLET PO SCH (21:18)
[2019-06-19] MEDS: LIDOCAINE PATCH REMOVAL MC SCH (23:14)
[2019-06-20] MEDS: GABAPENTIN 100 MG CAPSULE (FP) PO SCH ×3 (06:34→21:18)
[2019-06-20] MEDS: BUPRENORPHINE/NALOXONE 8 MG/2 MG FILM PACKET SL SCH ×3 (06:34→21:20)
[2019-06-20] MEDS: PRENATAL VITAMINS W/ FOLIC ACID TABLET (FP) PO SCH (09:41)
[2019-06-20] MEDS: PANTOPRAZOLE 40 MG TABLET (FP) PO SCH ×2 (09:41→21:17)
[2019-06-20] MEDS: LIDOCAINE 5% TOPICAL PATCH TP SCH (09:42)
[2019-06-20] MEDS: PRAZOSIN HCL 1 MG CAPSULE PO SCH (21:17)
[2019-06-20] MEDS: diphenhydrAMINE HCL 50 MG CAPSULE PO PRN (21:17)
[2019-06-20] MEDS: QUEtiapine FUMARATE 200 MG TABLET PO SCH (21:17)
[2019-06-20] MEDS: THIAMINE HCL 100 MG TABLET (FP) PO SCH (21:17)
[2019-06-20] MEDS: LIDOCAINE PATCH REMOVAL MC SCH (21:19)
[2019-06-21] MEDS: BUPRENORPHINE/NALOXONE 8 MG/2 MG FILM PACKET SL SCH ×3 (06:29→21:46)
[2019-06-21] MEDS: GABAPENTIN 100 MG CAPSULE (FP) PO SCH ×3 (06:29→21:43)
[2019-06-21] MEDS: NICOTINE POLACRILEX 2 MG GUM BUC PRN (08:22)
[2019-06-21] MEDS: LIDOCAINE 5% TOPICAL PATCH TP SCH (10:55)
[2019-06-21] MEDS: PRENATAL VITAMINS W/ FOLIC ACID TABLET (FP) PO SCH (10:55)
[2019-06-21] MEDS: PANTOPRAZOLE 40 MG TABLET (FP) PO SCH ×2 (10:55→21:44)
[2019-06-21] MEDS: hydrOXYzine PAMOATE 25 MG CAPSULE (FP) PO PRN ×2 (11:04→18:07)
[2019-06-21] MEDS: METHOCARBAMOL 500 MG TABLET PO PRN ×2 (11:04→21:44)
[2019-06-21] MEDS: QUEtiapine FUMARATE 200 MG TABLET PO SCH (21:43)
[2019-06-21] MEDS: THIAMINE HCL 100 MG TABLET (FP) PO SCH (21:43)
[2019-06-21] MEDS: diphenhydrAMINE HCL 50 MG CAPSULE PO PRN (21:44)
[2019-06-21] MEDS: PRAZOSIN HCL 1 MG CAPSULE PO SCH (21:44)
[2019-06-21] MEDS: LIDOCAINE PATCH REMOVAL MC SCH (21:45)
[2019-06-22] MEDS: BUPRENORPHINE/NALOXONE 8 MG/2 MG FILM PACKET SL SCH ×3 (06:55→21:51)
[2019-06-22] MEDS: GABAPENTIN 100 MG CAPSULE (FP) PO SCH ×3 (06:55→21:50)
[2019-06-22] MEDS: PRENATAL VITAMINS W/ FOLIC ACID TABLET (FP) PO SCH (09:51)
[2019-06-22] MEDS: LIDOCAINE 5% TOPICAL PATCH TP SCH (09:52)
[2019-06-22] MEDS: hydrOXYzine PAMOATE 25 MG CAPSULE (FP) PO PRN (09:53)
[2019-06-22] MEDS: METHOCARBAMOL 500 MG TABLET PO PRN ×2 (09:53→21:51)
[2019-06-22] MEDS: PANTOPRAZOLE 40 MG TABLET (FP) PO SCH ×2 (10:41→21:50)
[2019-06-22] MEDS: DOCUSATE SODIUM 100 MG CAPSULE (FP) PO SCH ×2 (14:21→21:50)
[2019-06-22] MEDS: NICOTINE POLACRILEX 2 MG GUM BUC PRN (14:23)
[2019-06-22] MEDS: THIAMINE HCL 100 MG TABLET (FP) PO SCH (21:50)
[2019-06-22] MEDS: MELATONIN 5 MG TABLETS PO PRN (21:50)
[2019-06-22] MEDS: QUEtiapine FUMARATE 200 MG TABLET PO SCH (21:50)
[2019-06-22] MEDS: PRAZOSIN HCL 1 MG CAPSULE PO SCH (21:50)
[2019-06-22] MEDS: LIDOCAINE PATCH REMOVAL MC SCH (21:54)
[2019-06-23] MEDS: DOCUSATE SODIUM 100 MG CAPSULE (FP) PO SCH ×3 (06:14→21:30)
[2019-06-23] MEDS: BUPRENORPHINE/NALOXONE 8 MG/2 MG FILM PACKET SL SCH ×3 (06:14→21:30)
[2019-06-23] MEDS: GABAPENTIN 100 MG CAPSULE (FP) PO SCH ×3 (06:14→21:30)
[2019-06-23] MEDS: PRENATAL VITAMINS W/ FOLIC ACID TABLET (FP) PO SCH (09:57)
[2019-06-23] MEDS: PANTOPRAZOLE 40 MG TABLET (FP) PO SCH ×2 (09:57→21:30)
[2019-06-23] MEDS: LIDOCAINE 5% TOPICAL PATCH TP SCH (09:57)
[2019-06-23] MEDS: HYDROCORTISONE 1% TOPICAL CREAM 30 GM TUBE TP PRN (09:58)
[2019-06-23] MEDS: METHOCARBAMOL 500 MG TABLET PO PRN ×2 (10:00→21:33)
[2019-06-23] MEDS: hydrOXYzine PAMOATE 25 MG CAPSULE (FP) PO PRN ×2 (10:00→21:31)
[2019-06-23] MEDS: NICOTINE POLACRILEX 2 MG GUM BUC PRN (14:34)
[2019-06-23] MEDS: PRAZOSIN HCL 1 MG CAPSULE PO SCH (21:30)
[2019-06-23] MEDS: QUEtiapine FUMARATE 200 MG TABLET PO SCH (21:30)
[2019-06-23] MEDS: THIAMINE HCL 100 MG TABLET (FP) PO SCH (21:30)
[2019-06-23] MEDS: LIDOCAINE PATCH REMOVAL MC SCH (21:31)
[2019-06-24] MEDS: DOCUSATE SODIUM 100 MG CAPSULE (FP) PO SCH ×3 (06:39→21:27)
[2019-06-24] MEDS: BUPRENORPHINE/NALOXONE 8 MG/2 MG FILM PACKET SL SCH ×4 (06:40→21:28)
[2019-06-24] MEDS: GABAPENTIN 100 MG CAPSULE (FP) PO SCH ×3 (06:40→21:27)
[2019-06-24] MEDS: METHOCARBAMOL 500 MG TABLET PO PRN ×3 (06:42→21:28)
[2019-06-24] MEDS: hydrOXYzine PAMOATE 25 MG CAPSULE (FP) PO PRN (06:42)
[2019-06-24] MEDS: PRENATAL VITAMINS W/ FOLIC ACID TABLET (FP) PO SCH (10:09)
[2019-06-24] MEDS: LIDOCAINE 5% TOPICAL PATCH TP SCH (10:09)
[2019-06-24] MEDS: PANTOPRAZOLE 40 MG TABLET (FP) PO SCH ×2 (10:09→21:26)
[2019-06-24] MEDS: HYDROCORTISONE 1% TOPICAL CREAM 30 GM TUBE TP PRN (10:09)
[2019-06-24] MEDS: NICOTINE POLACRILEX 2 MG GUM BUC PRN (19:56)
[2019-06-24] MEDS: PRAZOSIN HCL 1 MG CAPSULE PO SCH (21:26)
[2019-06-24] MEDS: THIAMINE HCL 100 MG TABLET (FP) PO SCH (21:26)
[2019-06-24] MEDS: diphenhydrAMINE HCL 50 MG CAPSULE PO PRN (21:27)
[2019-06-24] MEDS: QUEtiapine FUMARATE 200 MG TABLET PO SCH (21:27)
[2019-06-24] MEDS: LIDOCAINE PATCH REMOVAL MC SCH (21:30)
[2019-06-25] MEDS: GABAPENTIN 100 MG CAPSULE (FP) PO SCH ×3 (06:35→21:31)
[2019-06-25] MEDS: DOCUSATE SODIUM 100 MG CAPSULE (FP) PO SCH ×3 (06:35→21:31)
[2019-06-25] MEDS: BUPRENORPHINE/NALOXONE 8 MG/2 MG FILM PACKET SL SCH ×3 (06:35→21:34)
[2019-06-25] MEDS ORDERED: MAG HYDROX/AL HYDROX/SIMETH 30 ML UNIT-DOSE CUP PO PRN (08:21)
[2019-06-25] MEDS: PRENATAL VITAMINS W/ FOLIC ACID TABLET (FP) PO SCH (09:54)
[2019-06-25] MEDS: LIDOCAINE 5% TOPICAL PATCH TP SCH (09:55)
[2019-06-25] MEDS: NICOTINE POLACRILEX 2 MG GUM BUC PRN ×2 (09:55→21:34)
[2019-06-25] MEDS: hydrOXYzine PAMOATE 25 MG CAPSULE (FP) PO PRN (09:55)
[2019-06-25] MEDS: METHOCARBAMOL 500 MG TABLET PO PRN ×2 (09:55→21:34)
[2019-06-25] MEDS: PANTOPRAZOLE 40 MG TABLET (FP) PO SCH ×2 (09:55→21:32)
[2019-06-25] MEDS ORDERED: PT OWN MED DRAWER 7, Y5N ONE (12:41)
[2019-06-25] MEDS: THIAMINE HCL 100 MG TABLET (FP) PO SCH (21:32)
[2019-06-25] MEDS: QUEtiapine FUMARATE 200 MG TABLET PO SCH (21:32)
[2019-06-25] MEDS: PRAZOSIN HCL 1 MG CAPSULE PO SCH (21:32)
[2019-06-25] MEDS: MELATONIN 5 MG TABLETS PO PRN (21:32)
[2019-06-25] MEDS: diphenhydrAMINE HCL 50 MG CAPSULE PO PRN (21:34)
[2019-06-25] MEDS: LIDOCAINE PATCH REMOVAL MC SCH (21:35)
[2019-06-26] MEDS: hydrOXYzine PAMOATE 25 MG CAPSULE (FP) PO PRN ×2 (04:11→10:00)
[2019-06-26] MEDS: BUPRENORPHINE/NALOXONE 8 MG/2 MG FILM PACKET SL SCH ×3 (07:25→22:02)
[2019-06-26] MEDS: GABAPENTIN 100 MG CAPSULE (FP) PO SCH ×3 (07:25→22:00)
[2019-06-26] MEDS: DOCUSATE SODIUM 100 MG CAPSULE (FP) PO SCH ×3 (07:26→22:00)
[2019-06-26] MEDS: LIDOCAINE 5% TOPICAL PATCH TP SCH (09:59)
[2019-06-26] MEDS: PANTOPRAZOLE 40 MG TABLET (FP) PO SCH ×2 (10:00→22:00)
[2019-06-26] MEDS: PRENATAL VITAMINS W/ FOLIC ACID TABLET (FP) PO SCH (10:00)
[2019-06-26] MEDS: NICOTINE POLACRILEX 2 MG GUM BUC PRN ×2 (13:35→22:02)
[2019-06-26] MEDS: PRAZOSIN HCL 1 MG CAPSULE PO SCH (22:00)
[2019-06-26] MEDS: QUEtiapine FUMARATE 200 MG TABLET PO SCH (22:00)
[2019-06-26] MEDS: THIAMINE HCL 100 MG TABLET (FP) PO SCH (22:00)
[2019-06-26] MEDS: diphenhydrAMINE HCL 50 MG CAPSULE PO PRN (22:02)
[2019-06-26] MEDS: METHOCARBAMOL 500 MG TABLET PO PRN (22:02)
[2019-06-26] MEDS: LIDOCAINE PATCH REMOVAL MC SCH (22:12)
[2019-06-27] MEDS: hydrOXYzine PAMOATE 25 MG CAPSULE (FP) PO PRN ×2 (06:34→18:31)
[2019-06-27] MEDS: GABAPENTIN 100 MG CAPSULE (FP) PO SCH ×3 (06:34→21:22)
[2019-06-27] MEDS: DOCUSATE SODIUM 100 MG CAPSULE (FP) PO SCH ×3 (06:34→21:23)
[2019-06-27] MEDS: METHOCARBAMOL 500 MG TABLET PO PRN ×2 (06:34→18:31)
[2019-06-27] MEDS: BUPRENORPHINE/NALOXONE 8 MG/2 MG FILM PACKET SL SCH ×3 (06:35→21:22)
[2019-06-27] MEDS: PANTOPRAZOLE 40 MG TABLET (FP) PO SCH ×2 (09:29→21:23)
[2019-06-27] MEDS: LIDOCAINE 5% TOPICAL PATCH TP SCH (09:29)
[2019-06-27] MEDS: PRENATAL VITAMINS W/ FOLIC ACID TABLET (FP) PO SCH (09:29)
[2019-06-27] MEDS: HYDROCORTISONE 1% TOPICAL CREAM 30 GM TUBE TP PRN (09:31)
[2019-06-27] MEDS: COLLOIDAL OATMEAL 1 BAR EACH TP PRN (09:32)
[2019-06-27] MEDS: PRAZOSIN HCL 1 MG CAPSULE PO SCH (21:22)
[2019-06-27] MEDS: diphenhydrAMINE HCL 50 MG CAPSULE PO PRN (21:22)
[2019-06-27] MEDS: THIAMINE HCL 100 MG TABLET (FP) PO SCH (21:22)
[2019-06-27] MEDS: QUEtiapine FUMARATE 200 MG TABLET PO SCH (21:23)
[2019-06-27] MEDS: LIDOCAINE PATCH REMOVAL MC SCH (21:46)
[2019-06-28] MEDS: GABAPENTIN 100 MG CAPSULE (FP) PO SCH ×3 (06:50→21:08)
[2019-06-28] MEDS: DOCUSATE SODIUM 100 MG CAPSULE (FP) PO SCH ×3 (06:50→21:08)
[2019-06-28] MEDS: BUPRENORPHINE/NALOXONE 8 MG/2 MG FILM PACKET SL SCH ×3 (06:50→21:10)
[2019-06-28] MEDS: PANTOPRAZOLE 40 MG TABLET (FP) PO SCH ×2 (10:20→21:30)
[2019-06-28] MEDS: PRENATAL VITAMINS W/ FOLIC ACID TABLET (FP) PO SCH (10:20)
[2019-06-28] MEDS: hydrOXYzine PAMOATE 25 MG CAPSULE (FP) PO PRN ×2 (10:21→18:04)
[2019-06-28] MEDS: METHOCARBAMOL 500 MG TABLET PO PRN ×2 (10:21→18:04)
[2019-06-28] MEDS: LIDOCAINE 5% TOPICAL PATCH TP SCH (10:22)
[2019-06-28] MEDS: THIAMINE HCL 100 MG TABLET (FP) PO SCH (21:08)
[2019-06-28] MEDS: QUEtiapine FUMARATE 200 MG TABLET PO SCH (21:08)
[2019-06-28] MEDS: diphenhydrAMINE HCL 50 MG CAPSULE PO PRN (21:08)
[2019-06-28] MEDS: MELATONIN 5 MG TABLETS PO PRN (21:08)
[2019-06-28] MEDS: PRAZOSIN HCL 1 MG CAPSULE PO SCH (21:08)
[2019-06-28] MEDS: LIDOCAINE PATCH REMOVAL MC SCH (21:30)
[2019-06-29] MEDS: GABAPENTIN 100 MG CAPSULE (FP) PO SCH ×3 (06:24→21:25)
[2019-06-29] MEDS: DOCUSATE SODIUM 100 MG CAPSULE (FP) PO SCH ×3 (06:24→21:26)
[2019-06-29] MEDS: BUPRENORPHINE/NALOXONE 8 MG/2 MG FILM PACKET SL SCH ×3 (06:24→21:25)
[2019-06-29] MEDS: PRENATAL VITAMINS W/ FOLIC ACID TABLET (FP) PO SCH (09:25)
[2019-06-29] MEDS: PANTOPRAZOLE 40 MG TABLET (FP) PO SCH ×2 (09:25→21:27)
[2019-06-29] MEDS: LIDOCAINE 5% TOPICAL PATCH TP SCH (09:27)
[2019-06-29] MEDS: METHOCARBAMOL 500 MG TABLET PO PRN ×2 (13:12→21:26)
[2019-06-29] MEDS: hydrOXYzine PAMOATE 25 MG CAPSULE (FP) PO PRN (13:12)
--- NOTE | 2019-06-29 14:12 | PN ---
S Progress Note Note: Patient complains of sleeping poorly despite taking Seroquel 200 mg/hs and Melatonin 5 mg/hs. Will order Belsomra 10 mg/hs
--- NOTE | 2019-06-29 15:23 | PN ---
[facility] Progress Note Note: Saw pt who is requesting for increased in her Minipress dose to 2 mg . Reports she gets it for nightmare and PTSD. Pt is currently on 1mg dose. Pt reports got it at "[facility] [place], [place]". Alert o x 3. NAD. Vital Signs - 24 hr 06/29/19 06/29/19 06/29/19 00:30 03:30 07:05 Temperature 97.3 F L Pulse Rate 72 Respiratory 18 18 16 Rate Blood Pressure 136/86 06/29/19 10:00 Temperature 98.4 F Pulse Rate Respiratory Rate Blood Pressure Plan:psych consult to re-eval for medication.
[2019-06-29] MEDS: PRAZOSIN HCL 1 MG CAPSULE PO SCH (21:26)
[2019-06-29] MEDS: diphenhydrAMINE HCL 50 MG CAPSULE PO PRN (21:27)
[2019-06-29] MEDS: QUEtiapine FUMARATE 200 MG TABLET PO SCH (21:27)
[2019-06-29] MEDS: THIAMINE HCL 100 MG TABLET (FP) PO SCH (21:28)
[2019-06-29] MEDS ORDERED: SUVOREXANT 10 MG TABLET PO PRN (22:00)
[2019-06-29] MEDS: LIDOCAINE PATCH REMOVAL MC SCH (22:27)
[2019-06-30] MEDS: DOCUSATE SODIUM 100 MG CAPSULE (FP) PO SCH ×3 (06:09→21:11)
[2019-06-30] MEDS: GABAPENTIN 100 MG CAPSULE (FP) PO SCH ×3 (06:09→21:11)
[2019-06-30] MEDS: BUPRENORPHINE/NALOXONE 8 MG/2 MG FILM PACKET SL SCH ×3 (06:10→21:11)
[2019-06-30] MEDS: LIDOCAINE 5% TOPICAL PATCH TP SCH (10:35)
[2019-06-30] MEDS: PRENATAL VITAMINS W/ FOLIC ACID TABLET (FP) PO SCH (10:35)
[2019-06-30] MEDS: PANTOPRAZOLE 40 MG TABLET (FP) PO SCH ×2 (10:35→21:11)
[2019-06-30] MEDS: METHOCARBAMOL 500 MG TABLET PO PRN (10:37)
[2019-06-30] MEDS: hydrOXYzine PAMOATE 25 MG CAPSULE (FP) PO PRN (10:37)
--- NOTE | 2019-06-30 18:13 | PN ---
[facility] Progress Note Note: Psychiatry Attending's note : Patient seen. 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 Complaint : insomnia. Chart reviewed. Medications revisited. Belsomra ordered on 06/29/19. Not yet dispensed. Sleep hygiene explained to the patient. Made aware of suvorexant in the regimen. Side effects/benefits discussed. Patient agrees. Ms Szymanski is doing very well. Remarkably improved. Neatly groomed, conversant, appropriate. Pleasant and hopeful. Not psychotic. Cooperative with staff and sociable. Goal-directed. Follow response to suvorexant. Psychiatry-Liaison to be contacted as needed.
[2019-06-30] MEDS: QUEtiapine FUMARATE 200 MG TABLET PO SCH (21:11)
[2019-06-30] MEDS: PRAZOSIN HCL 1 MG CAPSULE PO SCH (21:11)
[2019-06-30] MEDS: THIAMINE HCL 100 MG TABLET (FP) PO SCH (21:11)
[2019-06-30] MEDS: NICOTINE POLACRILEX 2 MG GUM BUC PRN (21:14)
[2019-06-30] MEDS: LIDOCAINE PATCH REMOVAL MC SCH (21:20)
[2019-07-01] MEDS: GABAPENTIN 100 MG CAPSULE (FP) PO SCH ×3 (06:54→21:16)
[2019-07-01] MEDS: BUPRENORPHINE/NALOXONE 8 MG/2 MG FILM PACKET SL SCH ×3 (06:55→21:16)
[2019-07-01] MEDS: DOCUSATE SODIUM 100 MG CAPSULE (FP) PO SCH ×3 (06:55→21:17)
[2019-07-01] MEDS: PANTOPRAZOLE 40 MG TABLET (FP) PO SCH ×2 (10:04→21:17)
[2019-07-01] MEDS: hydrOXYzine PAMOATE 25 MG CAPSULE (FP) PO PRN (10:04)
[2019-07-01] MEDS: PRENATAL VITAMINS W/ FOLIC ACID TABLET (FP) PO SCH (10:04)
[2019-07-01] MEDS: LIDOCAINE 5% TOPICAL PATCH TP SCH (10:04)
[2019-07-01] MEDS: METHOCARBAMOL 500 MG TABLET PO PRN ×2 (10:04→21:17)
[2019-07-01] MEDS: NICOTINE POLACRILEX 2 MG GUM BUC PRN (10:05)
[2019-07-01] MEDS: THIAMINE HCL 100 MG TABLET (FP) PO SCH (21:16)
[2019-07-01] MEDS: diphenhydrAMINE HCL 50 MG CAPSULE PO PRN (21:16)
[2019-07-01] MEDS: PRAZOSIN HCL 1 MG CAPSULE PO SCH (21:16)
[2019-07-01] MEDS: QUEtiapine FUMARATE 200 MG TABLET PO SCH (21:16)
[2019-07-01] MEDS: LIDOCAINE PATCH REMOVAL MC SCH (21:19)
[2019-07-01] MEDS: SUVOREXANT 10 MG TABLET PO PRN (21:19)
[2019-07-02] MEDS: GABAPENTIN 100 MG CAPSULE (FP) PO SCH ×3 (06:27→21:16)
[2019-07-02] MEDS: DOCUSATE SODIUM 100 MG CAPSULE (FP) PO SCH ×3 (06:27→21:16)
[2019-07-02] MEDS: BUPRENORPHINE/NALOXONE 8 MG/2 MG FILM PACKET SL SCH ×3 (06:28→21:15)
[2019-07-02] MEDS: PANTOPRAZOLE 40 MG TABLET (FP) PO SCH ×2 (10:11→21:16)
[2019-07-02] MEDS: PRENATAL VITAMINS W/ FOLIC ACID TABLET (FP) PO SCH (10:11)
[2019-07-02] MEDS: hydrOXYzine PAMOATE 25 MG CAPSULE (FP) PO PRN (10:11)
[2019-07-02] MEDS: METHOCARBAMOL 500 MG TABLET PO PRN (10:12)
[2019-07-02] MEDS: LIDOCAINE 5% TOPICAL PATCH TP SCH (10:12)
[2019-07-02] MEDS: NICOTINE POLACRILEX 2 MG GUM BUC PRN (10:12)
--- NOTE | 2019-07-02 11:51 | DS ---
[facility] Rehab Discharge Summary - [facility] Rehab Discharge Summary Admission Date: 06/05/19 Discharge Date: 07/03/19 - History Present History: Cocaine dependence, Opioid dependence Additional Comments: Pt is a 59 y/o female admitted to rehab and scheduled to discharge on 07/03/19 after completion of treatment. Pertinent Past History: Gastritis arthritis Schizophrenia - Discharge Physical Exam Vital Signs: Vital Signs Temperature 98.0 F 07/02/19 07:00 Pulse Rate 80 07/02/19 07:00 Respiratory Rate 18 07/02/19 07:00 Blood Pressure 116/74 07/02/19 07:00 O2 Sat by Pulse Oximetry (%) General:Alert o x 3, nad,oob ambulaing with steady gait Heent:Normocephalic,eomi,naga,hearing normal Cardiac:S1 S2,rrr Lungs:cta,funmi. Abdomen:soft,+bs,nt,nd Extremities/Skin:No edema,no cyanosis,Full ROM;skin intact. Pertinent Admission Physical Exam Findings: Unremarkable - Treatment Discharge Condition: Discharge condition good Hospital Course: Rehabilitated safely and Responded well Aftercare referral accepted - Medication Discharge Medications: Ambulatory Orders Quetiapine Fumarate [Seroquel -] 200 mg PO HS tablet 06/05/19 Sulfamethoxazole/Trimethoprim [Bactrim DS -] 1 tab PO BID 06/05/19 Buprenorphine/Naloxone [Suboxone 8Mg/2Mg Sl Film -] 1 each SL DAILY 7 Days #21 packet MDD 3 07/02/19 Naloxone HCl [Narcan] 4 mg NS ONCE #1 spray 07/02/19 Pantoprazole Sodium [Protonix] 40 mg PO DAILY 7 Days #7 tablet. 07/02/19 Quetiapine Fumarate [Seroquel -] 200 mg PO HS #30 tablet 07/02/19 - Medication-Assisted Treatment (MAT) Medication-Assisted Treatment (MAT): Yes Medication Prescribed: Suboxone MAT Follow-up Referral: [facility] - Discharge Instructions Diet, activity, other medical instructions: Diet: Activity: Other medical instructions: - Diagnosis (1) Arthritis Status: Chronic (2) Weight loss Status: Acute (3) Cocaine dependence Status: Chronic Qualifiers: Substance use status: uncomplicated Qualified Code(s): F14.20 - Cocaine dependence, uncomplicated (4) Nicotine dependence Status: Chronic Qualifiers: Nicotine product type: cigarettes Substance use status: uncomplicated Qualified Code(s): F17.210 - Nicotine dependence, cigarettes, uncomplicated (5) Gastritis Status: Chronic Qualifiers: Gastritis type: unspecified gastritis Chronicity: unspecified Gastritis bleeding: without bleeding Qualified Code(s): K29.70 - Gastritis, unspecified , without bleeding (6) UTI (urinary tract infection) Status: Acute Qualifiers: Urinary tract infection type: site unspecified (7) H/O left knee surgery Status: Resolved (8) History of hysterectomy Status: Resolved (9) History of right knee joint replacement Status: Resolved - Follow-up Referral Minutes to complete discharge: 20 - AMA Did Patient Leave Against Medical Advice: No Additional Comments: Suboxone 8mg/2mg sl tid #21, Narcan spray #1 and Protonix 40 mg po daily #7 electronically sent to [facility] for bean picker.
[2019-07-02] MEDS ORDERED: PT OWN MED DRAWER 7, Y5N ONE (12:59)
--- NOTE | 2019-07-02 14:52 | PN ---
[facility] Progress Note Note: Psychiatric nurse practitoner note: Patient scheduled for discharge tomorrow morning. A 30 day prescription of Seroquel 200mg was electronically sent to [facility], [address] [place] [address].
[2019-07-02] MEDS: SUVOREXANT 10 MG TABLET PO PRN (21:15)
[2019-07-02] MEDS: PRAZOSIN HCL 1 MG CAPSULE PO SCH (21:16)
[2019-07-02] MEDS: QUEtiapine FUMARATE 200 MG TABLET PO SCH (21:16)
[2019-07-02] MEDS: THIAMINE HCL 100 MG TABLET (FP) PO SCH (21:16)
[2019-07-02] MEDS: LIDOCAINE PATCH REMOVAL MC SCH (21:18)
[2019-07-03] MEDS ORDERED: PT OWN MED DRAWER 7, Y5N ONE (01:30)
[2019-07-03] MEDS: DOCUSATE SODIUM 100 MG CAPSULE (FP) PO SCH (06:11)
[2019-07-03] MEDS: GABAPENTIN 100 MG CAPSULE (FP) PO SCH (06:11)
[2019-07-03] MEDS: hydrOXYzine PAMOATE 25 MG CAPSULE (FP) PO PRN (06:13)
[2019-07-03] MEDS: METHOCARBAMOL 500 MG TABLET PO PRN (06:13)
[2019-07-03] MEDS: BUPRENORPHINE/NALOXONE 8 MG/2 MG FILM PACKET SL SCH (06:13)
[2019-07-03 06:38] VITALS: BP 101/66; PULSE 92; TEMP 97.8
== END 2019-07-03 06:37 | disposition home or self-care (01) | DRG 895 ==
LOC: YASAS 17:33 → Y3N 18:35 → Y3E 06-06 12:25
PROVIDERS: ADMIT Surgery; ATTEND Allergy & Immunology
PROC: HZ2ZZZZ Detoxification Services for Substance Abuse Treatment (ICD-10-PCS; principal; 2019-06-05)
PROC: HZ42ZZZ Group Counseling for Substance Abuse Treatment, Cognitive-Behavioral (ICD-10-PCS; 2019-06-06)
DX: F11.23 Opioid dependence with withdrawal (principal); K29.81 Duodenitis with bleeding; F14.20 Cocaine dependence, uncomplicated; N39.0 Urinary tract infection, site not specified; F17.210 Nicotine dependence, cigarettes, uncomplicated; F43.10 Post-traumatic stress disorder, unspecified; F19.24 Other psychoactive substance dependence with psychoactive substance-induced mood disorder; I10 Essential (primary) hypertension; M54.5 Low back pain; G89.29 Other chronic pain; R11.2 Nausea with vomiting, unspecified; E83.41 Hypermagnesemia; R63.4 Abnormal weight loss; M19.90 Unspecified osteoarthritis, unspecified site; G47.00 Insomnia, unspecified; K21.9 Gastro-esophageal reflux disease without esophagitis; R20.0 Anesthesia of skin; R20.2 Paresthesia of skin; Z90.710 Acquired absence of both cervix and uterus